=== PATIENT | female | born 1955 | race Hispanic/Latino ===

== ENCOUNTER 2018-09-23 01:55 | Inpatient (IN) | payer MEDICARE ==
[2018-09-23] MEDS ORDERED: DUONEB *Not for PRN Use IH ONE (03:01)
[2018-09-23] MEDS ORDERED: SOLU-Medrol IV ONE (03:27)
[2018-09-23] MEDS ORDERED: LEVAQUIN 750MG/150ML 750 MG/150 ML BAG IV ONE (03:27)
[2018-09-23] MEDS ORDERED: ATROVENT IH ONE (03:27)
[2018-09-23] MEDS ORDERED: PROVENTIL IH ONE (03:27)
--- NOTE | 2018-09-23 03:27 | Emergency Department Report ---
ED Shortness of Breath HPI - General Chief Complaint: Dyspnea/Respdistress Stated Complaint: DIFFICULTY IN BREATHING, CHEST PAIN Time Seen by Provider: 09/23/18 03:27 Source: patient, EMS Mode of arrival: Stretcher Limitations: No Limitations - History of Present Illness MD Complaint: shortness of breath, cough, chest pain -: Gradual, days(s) (3) Severity: severe Pain Scale: 7 Quality: aching Consistency: constant Improves With: nothing Worsens With: nothing Known History Of: COPD Associated Symptoms: chest pain Treatments Prior to Arrival: oxygen - Related Data Home Oxygen Therapy: No Home Oxygen Amount: 3 Liters Allergies Allergy/AdvReac Type Severity Reaction Status Date / Time Penicillins AdvReac Severe Anaphylaxis Verified 09/23/18 02:53 ED Review of Systems ROS: Stated complaint: DIFFICULTY IN BREATHING, CHEST PAIN Other details as noted in HPI Comment: All other systems reviewed and negative Constitutional: denies: chills, fever Eyes: denies: eye pain, eye discharge, vision change ENT: denies: ear pain, throat pain Respiratory: cough, orthopnea, shortness of breath. denies: wheezing Cardiovascular: chest pain. denies: palpitations Endocrine: no symptoms reported Gastrointestinal: denies: abdominal pain, nausea, diarrhea Genitourinary: denies: urgency, dysuria, discharge Musculoskeletal: denies: back pain, joint swelling, arthralgia Skin: denies: rash, lesions Neurological: denies: headache, weakness, paresthesias Psychiatric: denies: anxiety, depression Hematological/Lymphatic: denies: easy bleeding, easy bruising ED Physical Exam - General Limitations: No Limitations General appearance: alert, in no apparent distress - Head Head exam: Present: atraumatic, normocephalic - Eye Eye exam: Present: normal appearance, PERRL, EOMI - ENT ENT exam: Present: normal exam, normal orophraynx, mucous membranes moist - Neck Neck exam: Present: normal inspection, full ROM - Respiratory Respiratory exam: Present: wheezes, rales, rhonchi. Absent: respiratory distress - Cardiovascular Cardiovascular Exam: Present: regular rate, normal rhythm. Absent: systolic murmur, diastolic murmur, rubs, gallop - GI/Abdominal GI/Abdominal exam: Present: soft, normal bowel sounds - Extremities Exam Extremities exam: Present: normal inspection, normal capillary refill - Back Exam Back exam: Present: normal inspection, full ROM - Neurological Exam Neurological exam: Present: alert, oriented X3, CN II-XII intact - Psychiatric Psychiatric exam: Present: normal affect, normal mood - Skin Skin exam: Present: warm, dry, intact, normal color. Absent: rash ED Course Vital Signs 09/23/18 09/23/18 09/23/18 02:41 02:45 02:46 Temperature 99.4 F Pulse Rate 99 H Pulse Rate [ Anterior Left Throughout] Pulse Rate [ Anterior Right Throughout] Respiratory 16 Rate Respiratory Rate [Anterior Left Throughout ] Respiratory Rate [Anterior Right Throughout] Blood Pressure 108/65 108/65 Blood Pressure 108/65 [Left] O2 Sat by Pulse 100 95 100 Oximetry 09/23/18 09/23/18 09/23/18 03:00 03:12 03:16 Temperature Pulse Rate 88 90 Pulse Rate [ 99 H Anterior Left Throughout] Pulse Rate [ 99 H Anterior Right Throughout] Respiratory 19 15 Rate Respiratory 16 Rate [Anterior Left Throughout ] Respiratory 16 Rate [Anterior Right Throughout] Blood Pressure 105/56 108/65 Blood Pressure [Left] O2 Sat by Pulse 91 93 Oximetry 09/23/18 09/23/18 09/23/18 03:30 03:46 04:00 Temperature Pulse Rate 101 H 105 H 100 H Pulse Rate [ Anterior Left Throughout] Pulse Rate [ Anterior Right Throughout] Respiratory 18 23 28 H Rate Respiratory Rate [Anterior Left Throughout ] Respiratory Rate [Anterior Right Throughout] Blood Pressure 108/65 105/56 107/60 Blood Pressure [Left] O2 Sat by Pulse 92 86 Oximetry 09/23/18 09/23/18 09/23/18 04:02 04:16 04:20 Temperature Pulse Rate 100 H 99 H Pulse Rate [ 107 H 98 H Anterior Left Throughout] Pulse Rate [ 107 H 98 H Anterior Right Throughout] Respiratory 25 H 15 Rate Respiratory 19 18 Rate [Anterior Left Throughout ] Respiratory 19 18 Rate [Anterior Right Throughout] Blood Pressure 105/56 112/61 Blood Pressure [Left] O2 Sat by Pulse 97 87 Oximetry 09/23/18 09/23/18 09/23/18 04:30 05:00 05:11 Temperature Pulse Rate 99 H 107 H 104 H Pulse Rate [ Anterior Left Throughout] Pulse Rate [ Anterior Right Throughout] Respiratory 19 14 13 Rate Respiratory Rate [Anterior Left Throughout ] Respiratory Rate [Anterior Right Throughout] Blood Pressure 112/61 101/64 Blood Pressure 101/64 [Left] O2 Sat by Pulse 98 97 96 Oximetry 09/23/18 06:30 Temperature Pulse Rate 97 H Pulse Rate [ Anterior Left Throughout] Pulse Rate [ Anterior Right Throughout] Respiratory 18 Rate Respiratory Rate [Anterior Left Throughout ] Respiratory Rate [Anterior Right Throughout] Blood Pressure 107/57 Blood Pressure [Left] O2 Sat by Pulse 93 Oximetry - Consultations Consultation #1: 09/23/18 06:37 Dr Sauceda to admit. ED Medical Decision Making - Lab Data Result diagrams: 09/23/18 03:25 09/23/18 03:35 Lab Results 09/23/18 09/23/18 09/23/18 Range/Units 03:25 03:25 03:35 WBC 7.4 (4.5-11.0) K/mm3 RBC 4.01 (3.65-5.03) M/mm3 Hgb 12.5 (10.1-14.3) gm/dl Hct 38.6 (30.3-42.9) % MCV 96 (79-97) fl MCH 31 (28-32) pg MCHC 33 (30-34) % RDW 14.1 (13.2-15.2) % Plt Count 188 (140-440) K/mm3 Lymph % (Auto) 3.7 L (13.4-35.0) % [place] % (Auto) 6.6 (0.0-7.3) % Eos % (Auto) 0.1 (0.0-4.3) % Baso % (Auto) 0.5 (0.0-1.8) % Lymph # 0.3 L (1.2-5.4) K/mm3 [place] # 0.5 (0.0-0.8) K/mm3 Eos # 0.0 (0.0-0.4) K/mm3 Baso # 0.0 (0.0-0.1) K/mm3 Seg Neutrophils % 89.1 H (40.0-70.0) % Seg Neutrophils # 6.6 (1.8-7.7) K/mm3 APTT 23.9 L (24.2-36.6) Sec. POC ABG pH (7.35-7.45) POC ABG pCO2 (35-45) POC ABG pO2 (80-105) POC ABG HCO3 POC ABG Total CO2 POC ABG O2 Sat POC ABG Base Excess FiO2 % Sodium (137-145) mmol/L Potassium (3.6-5.0) mmol/L Chloride (98-107) mmol/L Carbon Dioxide (22-30) mmol/L Anion Gap mmol/L BUN (7-17) mg/dL Creatinine (0.7-1.2) mg/dL Estimated GFR ml/min BUN/Creatinine Ratio % Glucose (65-100) mg/dL Calcium (8.4-10.2) mg/dL Magnesium (1.7-2.3) mg/dL Total Bilirubin (0.1-1.2) mg/dL AST (5-40) units/L ALT (7-56) units/L Alkaline Phosphatase (35-129) units/L Total Creatine Kinase (30-135) units/L CK-MB (CK-2) (0.0-4.0) ng/mL CK-MB (CK-2) Rel Index (0-4) Troponin T < 0.010 (0.00-0.029) ng/mL Total Protein (6.3-8.2) g/dL Albumin (3.9-5) g/dL Albumin/Globulin Ratio % 09/23/18 09/23/18 09/23/18 Range/Units 03:35 03:35 03:46 WBC (4.5-11.0) K/mm3 RBC (3.65-5.03) M/mm3 Hgb (10.1-14.3) gm/dl Hct (30.3-42.9) % MCV (79-97) fl MCH (28-32) pg MCHC (30-34) % RDW (13.2-15.2) % Plt Count (140-440) K/mm3 Lymph % (Auto) (13.4-35.0) % [place] % (Auto) (0.0-7.3) % Eos % (Auto) (0.0-4.3) % Baso % (Auto) (0.0-1.8) % Lymph # (1.2-5.4) K/mm3 [place] # (0.0-0.8) K/mm3 Eos # (0.0-0.4) K/mm3 Baso # (0.0-0.1) K/mm3 Seg Neutrophils % (40.0-70.0) % Seg Neutrophils # (1.8-7.7) K/mm3 APTT (24.2-36.6) Sec. POC ABG pH 7.362 (7.35-7.45) POC ABG pCO2 68.5 H (35-45) POC ABG pO2 70 L (80-105) POC ABG HCO3 38.8 POC ABG Total CO2 41 POC ABG O2 Sat 92 POC ABG Base Excess 13 FiO2 3 % Sodium 137 (137-145) mmol/L Potassium 4.8 (3.6-5.0) mmol/L Chloride 91.4 L (98-107) mmol/L Carbon Dioxide 37 H (22-30) mmol/L Anion Gap 13 mmol/L BUN 13 (7-17) mg/dL Creatinine 0.4 L (0.7-1.2) mg/dL Estimated GFR > 60 ml/min BUN/Creatinine Ratio 33 % Glucose 150 H (65-100) mg/dL Calcium 9.1 (8.4-10.2) mg/dL Magnesium 1.90 (1.7-2.3) mg/dL Total Bilirubin 0.30 (0.1-1.2) mg/dL AST 10 (5-40) units/L ALT 5 L (7-56) units/L Alkaline Phosphatase 69 (35-129) units/L Total Creatine Kinase 28 L (30-135) units/L CK-MB (CK-2) 1.0 (0.0-4.0) ng/mL CK-MB (CK-2) Rel Index 3.5 (0-4) Troponin T (0.00-0.029) ng/mL Total Protein 5.8 L (6.3-8.2) g/dL Albumin 3.8 L (3.9-5) g/dL Albumin/Globulin Ratio 1.9 % - EKG Data -: EKG Interpreted by Mt EKG shows normal: sinus rhythm Rate: normal (97) - EKG Data When compared to previous EKG there are: previous EKG unavailable 09/23/18 06:39 LAD, No STEMI. - Radiology Data Radiology results: report reviewed, image reviewed CXR showed RLL infiltrate. Critical Care Time: Yes Critical care time in (mins) excluding proc time.: 40 Critical care attestation.: If time is entered above; I have spent that time in minutes in the direct care of this critically ill patient, excluding procedure time. ED Disposition Clinical Impression: COPD with exacerbation, Hypoxia, Respiratory distress, acute RLL pneumonia Qualifiers: Pneumonia type: due to unspecified organism Qualified Code(s): J18.1 - Lobar pneumonia, unspecified organism Disposition: OP ADMIT IP TO THIS HOSP Is pt being admited?: Yes Does the pt Need Aspirin: No Condition: Stable Instructions: Chronic Obstructive Pulmonary Disease (ED), Bacterial Pneumonia (ED) Time of Disposition: 06:40
[2018-09-23 03:40] LABS: Basophils % (Auto) 0.5 % (0.0-1.8); Eosinophils % (Auto) 0.1 % (0.0-4.3); Hematocrit 38.6 % (30.3-42.9); Hemoglobin 12.5 gm/dl (10.1-14.3); Lymphocytes # (Auto) 0.3 K/mm3 (1.2-5.4); Lymphocytes % (Auto) 3.7 % (13.4-35.0); Mean Corpuscular HGB Conc 33 % (30-34); Mean Corpuscular Hemoglobin 31 pg (28-32); Mean Corpuscular Volume 96 fl (79-97); Monocytes # (Auto) 0.5 K/mm3 (0.0-0.8); Monocytes % (Auto) 6.6 % (0.0-7.3); Platelet Count 188 K/mm3 (140-440); Red Blood Count 4.01 M/mm3 (3.65-5.03); Red Cell Distribution Width 14.1 % (13.2-15.2)
[2018-09-23 03:59] LABS: Alanine Aminotransferase 5 units/L (7-56); Albumin 3.8 g/dL (3.9-5); BUN/Creatinine Ratio 33; Blood Urea Nitrogen 13 mg/dL (7-17); Calcium 9.1 mg/dL (8.4-10.2); Hemolysis Index 42
[2018-09-23] MEDS ORDERED: MORPHINE IV ONE ×2 (04:06→08:30)
[2018-09-23] MEDS ORDERED: ZOFRAN IV ONE (04:07)
[2018-09-23] MEDS ORDERED: TESSALON PERLES PO ONE (04:08)
--- NOTE | 2018-09-23 04:10 | XRay Report ---
FINAL REPORT PROCEDURE: XR CHEST 1V AP TECHNIQUE: Chest radiograph anteroposterior view. CPT 76560 HISTORY: Shortness of breath COMPARISON: No prior studies are available for comparison. FINDINGS: Heart: Normal. Mediastinum/Vessels: Normal. Lungs/Pleural space: Mild infiltrate right lower lung. Slight vascular congestion. No effusion or pne umothorax. Bony thorax: No acute osseous abnormality. Life support devices: None. IMPRESSION: Mild infiltrate right lower lung. There is slight vascular congestion..
--- NOTE | 2018-09-23 09:00 | History and Physical Report ---
History of Present Illness Date of examination: 09/23/18 Date of admission: 09/23/2018 Chief complaint: Increasing shortness of breath for 2 days History of present illness: History of Present Illness: 63-year-old female with past medical history of insulin-dependent diabetes, COPD, peripheral neuropathy and chronic pain comes in for increasing shortness of breath of 3 days'. Cough or clear mucoid to yellow sputum. No fever or chills. No exacerbating or relieving factors. No chest pain. Past medical history Insulin-dependent diabetes COPD Peripheral neuropathy Chronic pain Past surgical history Unavailable Family history HTN Social history Doesn't smoke and no alcohol Review of Systems ROS: Stated complaint: DIFFICULTY IN BREATHING, CHEST PAIN Other details as noted in HPI Comment: All other systems reviewed and negative Constitutional: denies: chills, fever Eyes: denies: eye pain, eye discharge, vision change ENT: denies: ear pain, throat pain Respiratory: cough, orthopnea, shortness of breath. denies: wheezing Cardiovascular: chest pain. denies: palpitations Endocrine: no symptoms reported Gastrointestinal: denies: abdominal pain, nausea, diarrhea Genitourinary: denies: urgency, dysuria, discharge Musculoskeletal: denies: back pain, joint swelling, arthralgia Skin: denies: rash, lesions Neurological: denies: headache, weakness, paresthesias Psychiatric: denies: anxiety, depression Hematological/Lymphatic: denies: easy bleeding, easy bruising Medications and Allergies Allergies Allergy/AdvReac Type Severity Reaction Status Date / Time Penicillins AdvReac Severe Anaphylaxis Verified 09/23/18 02:53 Home Medications Medication Instructions Recorded Confirmed Last Taken Type Aspirin [Aspirin EC] 81 mg PO QDAY 09/23/18 09/23/18 Unknown History Baclofen [Lioresal] 10 mg PO BID 09/23/18 09/23/18 Unknown History Budesonide/Formoterol Fumarate 2 puff INHALATION BID 09/23/18 09/23/18 Unknown History [Symbicort 160-4.5 Mcg Inhaler] Buprenorphine 1 each TD 09/23/18 Unknown History Detemir (Nf) [Levemir (Nf)] 10 unit SQ QHS 09/23/18 09/23/18 Unknown History Digoxin 125 mcg PO 3XW 09/23/18 09/23/18 Unknown History Digoxin 125 mcg PO QDAY 09/23/18 09/23/18 Unknown History Fluticasone Propionate [Flovent 2 puff INHALATION BID 09/23/18 09/23/18 Unknown History Hfa] Gabapentin [Neurontin] 600 mg PO TID 09/23/18 09/23/18 Unknown History Theophylline Anhydrous ER [Theodur] 300 mg PO 09/23/18 Unknown History tiZANidine [Zanaflex] 4 mg PO Q8H PRN 09/23/18 09/23/18 Unknown History traMADol [Ultram] 50 mg PO Q6HR PRN 09/23/18 09/23/18 Unknown History Exam - Constitutional Vitals: Temp Pulse Resp BP Pulse Ox 99.4 F 97 H 22 107/57 94 09/23/18 02:45 09/23/18 06:30 09/23/18 07:40 09/23/18 06:30 09/23/18 07:40 General appearance: Present: no acute distress, well-nourished - EENT Eyes: Present: PERRL ENT: hearing intact, clear oral mucosa - Neck Neck: Present: supple, normal ROM - Respiratory Respiratory effort: normal Respiratory: bilateral: CTA, rhonchi - Cardiovascular Heart rate: 78 Rhythm: regular Heart Sounds: Present: S1 & S2. Absent: rub, click - Extremities Extremities: no ischemia, pulses intact, pulses symmetrical, No edema Peripheral Pulses: within normal limits - Abdominal General gastrointestinal: Present: soft, non-tender, non-distended, normal bowel sounds Female genitourinary: Present: normal - Rectal Rectal Exam: deferred - Integumentary Integumentary: Present: clear, warm, dry - Musculoskeletal Musculoskeletal: gait normal, strength equal bilaterally - Psychiatric Psychiatric: appropriate mood/affect, intact judgment & insight - Neurologic Neurologic: CNII-XII intact, moves all extremities - Allied Health Allied health notes reviewed: nursing, case management Results - Labs CBC & Chem 7: 09/24/18 04:28 09/24/18 04:28 Labs: Laboratory Last Values WBC 7.4 K/mm3 (4.5-11.0) 09/23/18 03:25 RBC 4.01 M/mm3 (3.65-5.03) 09/23/18 03:25 Hgb 12.5 gm/dl (10.1-14.3) 09/23/18 03:25 Hct 38.6 % (30.3-42.9) 09/23/18 03:25 MCV 96 fl (79-97) 09/23/18 03:25 MCH 31 pg (28-32) 09/23/18 03:25 MCHC 33 % (30-34) 09/23/18 03:25 RDW 14.1 % (13.2-15.2) 09/23/18 03:25 Plt Count 188 K/mm3 (140-440) 09/23/18 03:25 Lymph % (Auto) 3.7 % (13.4-35.0) L 09/23/18 03:25 [place] % (Auto) 6.6 % (0.0-7.3) 09/23/18 03:25 Eos % (Auto) 0.1 % (0.0-4.3) 09/23/18 03:25 Baso % (Auto) 0.5 % (0.0-1.8) 09/23/18 03:25 Lymph # 0.3 K/mm3 (1.2-5.4) L 09/23/18 03:25 [place] # 0.5 K/mm3 (0.0-0.8) 09/23/18 03:25 Eos # 0.0 K/mm3 (0.0-0.4) 09/23/18 03:25 Baso # 0.0 K/mm3 (0.0-0.1) 09/23/18 03:25 Seg Neutrophils % 89.1 % (40.0-70.0) H 09/23/18 03:25 Seg Neutrophils # 6.6 K/mm3 (1.8-7.7) 09/23/18 03:25 APTT 23.9 Sec. (24.2-36.6) L 09/23/18 03:35 POC ABG pH 7.362 (7.35-7.45) 09/23/18 03:46 POC ABG pCO2 68.5 (35-45) H 09/23/18 03:46 POC ABG pO2 70 (80-105) L 09/23/18 03:46 POC ABG HCO3 38.8 09/23/18 03:46 POC ABG Total CO2 41 09/23/18 03:46 POC ABG O2 Sat 92 09/23/18 03:46 POC ABG Base Excess 13 09/23/18 03:46 FiO2 3 % 09/23/18 03:46 Sodium 137 mmol/L (137-145) 09/23/18 03:35 Potassium 4.8 mmol/L (3.6-5.0) 09/23/18 03:35 Chloride 91.4 mmol/L (98-107) L 09/23/18 03:35 Carbon Dioxide 37 mmol/L (22-30) H 09/23/18 03:35 Anion Gap 13 mmol/L 09/23/18 03:35 BUN 13 mg/dL (7-17) 09/23/18 03:35 Creatinine 0.4 mg/dL (0.7-1.2) L 09/23/18 03:35 Estimated GFR > 60 ml/min 09/23/18 03:35 BUN/Creatinine Ratio 33 % 09/23/18 03:35 Glucose 150 mg/dL (65-100) H 09/23/18 03:35 Calcium 9.1 mg/dL (8.4-10.2) 09/23/18 03:35 Magnesium 1.90 mg/dL (1.7-2.3) 09/23/18 03:35 Total Bilirubin 0.30 mg/dL (0.1-1.2) 09/23/18 03:35 AST 10 units/L (5-40) 09/23/18 03:35 ALT 5 units/L (7-56) L 09/23/18 03:35 Alkaline Phosphatase 69 units/L (35-129) 09/23/18 03:35 Total Creatine Kinase 28 units/L (30-135) L 09/23/18 03:35 CK-MB (CK-2) 1.0 ng/mL (0.0-4.0) 09/23/18 03:35 CK-MB (CK-2) Rel Index 3.5 (0-4) 09/23/18 03:35 Troponin T < 0.010 ng/mL (0.00-0.029) 09/23/18 03:25 Total Protein 5.8 g/dL (6.3-8.2) L 09/23/18 03:35 Albumin 3.8 g/dL (3.9-5) L 09/23/18 03:35 Albumin/Globulin Ratio 1.9 % 09/23/18 03:35 Short CBC 09/24/18 Range/Units 04:28 WBC 5.9 (4.5-11.0) K/mm3 Hgb 12.7 (10.1-14.3) gm/dl Hct 39.9 (30.3-42.9) % Plt Count 175 (140-440) K/mm3 BMP 09/24/18 04:28 Sodium 143 Potassium 4.4 Chloride 94.6 L Carbon Dioxide 37 H BUN 31 H Creatinine 0.6 L Glucose 115 H Calcium 9.1 Liver Function 09/24/18 Range/Units 04:28 Total Bilirubin < 0.20 (0.1-1.2) mg/dL AST 12 (5-40) units/L ALT 7 (7-56) units/L Alkaline Phosphatase 73 (35-129) units/L Albumin 3.8 L (3.9-5) g/dL - Imaging and Cardiology EKG: report reviewed (normal sinus rhythm heart rate of 97/m no acute ST-T wave changes) Imaging and Cardiology: Chest x-ray IMPRESSION: Mild infiltrate right lower lung. There is slight vascular congestion.. Assessment and Plan Advance Directives: Yes (full code) VTE prophylaxis?: Chemical Plan of care discussed with patient/family: Yes - Patient Problems (1) Acute respiratory failure with hypoxia Current Visit: Yes Status: Acute Plan to address problem: Secondary to COPD and pneumonia Treat Both (2) COPD with exacerbation Current Visit: Yes Status: Acute Plan to address problem: Duonebs Solu-Medrol and IV antibiotics (3) RLL pneumonia Current Visit: Yes Status: Acute Qualifiers: Pneumonia type: due to unspecified organism Qualified Code(s): J18.1 - Lobar pneumonia, unspecified organism Plan to address problem: IV ceftriaxone and Zithromax (4) Insulin dependent diabetes mellitus Current Visit: Yes Status: Chronic Plan to address problem: Continue home insulin and coverage (5) Peripheral neuropathy Current Visit: Yes Status: Chronic Plan to address problem: Continue gabapentin (6) Malnutrition Current Visit: Yes Status: Chronic Qualifiers: Protein-calorie malnutrition severity: moderate Plan to address problem: Dietitian consult (7) DVT prophylaxis Current Visit: Yes Status: Acute Plan to address problem: On Lovenox and GI prophylaxis
[2018-09-23] MEDS ORDERED: TYLENOL PO PRN (09:01)
[2018-09-23] MEDS ORDERED: SODIUM CHLORIDE FLUSH SYRINGE 10 ML IV PRN (09:01)
[2018-09-23] MEDS ORDERED: DILAUDID IV PRN (09:01)
[2018-09-23] MEDS ORDERED: MOTRIN PO PRN (09:01)
[2018-09-23] MEDS ORDERED: PROVENTIL IH PRN (09:04)
[2018-09-23] MEDS ORDERED: MORPHINE ONE (09:07)
[2018-09-23] MEDS ORDERED: LOVENOX SUB-Q SCH (10:00)
[2018-09-23] MEDS ORDERED: DILAUDID ONE (10:36)
[2018-09-23] MEDS ORDERED: SOLU-Medrol ONE (10:37)
[2018-09-23] MEDS ORDERED: LOVENOX SUB-Q ONE (10:38)
[2018-09-23] MEDS: LOVENOX SUB-Q SCH (10:50)
[2018-09-23] MEDS: SOLU-Medrol IV SCH ×3 (10:50→23:00)
[2018-09-23] MEDS: SODIUM CHLORIDE FLUSH SYRINGE 10 ML IV SCH ×2 (10:50→23:03)
[2018-09-23] MEDS: ZOFRAN IV PRN ×2 (11:16→11:20)
[2018-09-23] MEDS ORDERED: ZOFRAN ONE (11:19)
[2018-09-23] MEDS: DUONEB *Not for PRN Use IH SCH ×3 (12:00→20:40)
[2018-09-23] MEDS ORDERED: D50W (25GM) Syringe IV PRN (12:38)
[2018-09-23] MEDS: HumaLOG SUB-Q SCH ×3 (13:15→23:01)
[2018-09-23] MEDS: TESSALON PERLES PO SCH ×2 (14:55→23:00)
[2018-09-24] MEDS: TESSALON PERLES PO SCH ×3 (05:28→21:04)
[2018-09-24] MEDS: SOLU-Medrol IV SCH ×3 (05:28→21:06)
[2018-09-24 05:44] LABS: Basophils % (Auto) 0.1 % (0.0-1.8); Hematocrit 39.9 % (30.3-42.9); Hemoglobin 12.7 gm/dl (10.1-14.3); Lymphocytes # (Auto) 0.2 K/mm3 (1.2-5.4); Lymphocytes % (Auto) 3.2 % (13.4-35.0); Mean Corpuscular HGB Conc 32 % (30-34); Mean Corpuscular Hemoglobin 31 pg (28-32); Mean Corpuscular Volume 98 fl (79-97); Monocytes # (Auto) 0.6 K/mm3 (0.0-0.8); Monocytes % (Auto) 9.8 % (0.0-7.3); Platelet Count 175 K/mm3 (140-440); Red Blood Count 4.06 M/mm3 (3.65-5.03); Red Cell Distribution Width 14.2 % (13.2-15.2)
[2018-09-24 06:18] LABS: Alanine Aminotransferase 7 units/L (7-56); Albumin 3.8 g/dL (3.9-5); BUN/Creatinine Ratio 52; Blood Urea Nitrogen 31 mg/dL (7-17); Calcium 9.1 mg/dL (8.4-10.2); Hemolysis Index 3
[2018-09-24] MEDS: HumaLOG SUB-Q SCH ×4 (08:30→22:56)
[2018-09-24] MEDS: DUONEB *Not for PRN Use IH SCH ×4 (08:33→19:53)
[2018-09-24] MEDS: LEVAQUIN 750MG/150ML 750 MG/150 ML BAG IV SCH (09:38)
[2018-09-24] MEDS: SODIUM CHLORIDE FLUSH SYRINGE 10 ML IV SCH ×2 (09:39→21:06)
[2018-09-24] MEDS: LOVENOX SUB-Q SCH (09:39)
[2018-09-24] MEDS ORDERED: ULTRAM PO PRN (15:58)
[2018-09-24] MEDS ORDERED: ZANAFLEX PO PRN (15:58)
[2018-09-24] MEDS ORDERED: NON-FORMULARY (Budesonide/Formoterol Fumarate [Symbicort 160-4.5 Mcg Inhaler] 2 PUFF) INHALATION SCH (16:00)
[2018-09-24] MEDS ORDERED: BUPRENORPHINE TD SCH (16:00)
[2018-09-24] MEDS ORDERED: FLUTICASONE PROPIONATE INHALATION SCH (16:15)
--- NOTE | 2018-09-24 16:21 | Progress Note ---
Assessment and Plan - Patient Problems (1) Acute respiratory failure with hypoxia Current Visit: Yes Status: Acute Plan to address problem: Secondary to COPD and pneumonia Treat Both (2) COPD with exacerbation Current Visit: Yes Status: Acute Plan to address problem: Duonebs Solu-Medrol and IV antibiotics (3) RLL pneumonia Current Visit: Yes Status: Acute Qualifiers: Pneumonia type: due to unspecified organism Qualified Code(s): J18.1 - Lobar pneumonia, unspecified organism Plan to address problem: IV ceftriaxone and Zithromax (4) Insulin dependent diabetes mellitus Current Visit: Yes Status: Chronic Plan to address problem: Continue home insulin and coverage (5) Peripheral neuropathy Current Visit: Yes Status: Chronic Plan to address problem: Continue gabapentin (6) Malnutrition Current Visit: Yes Status: Chronic Qualifiers: Protein-calorie malnutrition severity: moderate Plan to address problem: Dietitian consult (7) DVT prophylaxis Current Visit: Yes Status: Acute Plan to address problem: On Lovenox and GI prophylaxis Subjective Date of service: 09/24/18 Principal diagnosis: respiratory failure and right lower lobe pneumonia Interval history: Symptomatically slightly better, still lethargic Objective - Constitutional Vitals: Vital Signs - 12hr 09/24/18 09/24/18 09/24/18 07:26 08:00 08:10 Temperature 99.4 F Pulse Rate 99 H Pulse Rate [ 101 H 102 H Anterior Right Throughout] Pulse Rate [ Right Brachial] Respiratory 20 Rate Respiratory 18 18 Rate [Anterior Right Throughout] Blood Pressure 113/66 O2 Sat by Pulse 96 Oximetry 09/24/18 09/24/18 09/24/18 08:33 09:17 10:00 Temperature Pulse Rate 99 H Pulse Rate [ Anterior Right Throughout] Pulse Rate [ 101 H Right Brachial] Respiratory 17 Rate Respiratory Rate [Anterior Right Throughout] Blood Pressure O2 Sat by Pulse 96 92 Oximetry 09/24/18 12:00 Temperature Pulse Rate Pulse Rate [ 109 H Anterior Right Throughout] Pulse Rate [ Right Brachial] Respiratory Rate Respiratory 16 Rate [Anterior Right Throughout] Blood Pressure O2 Sat by Pulse Oximetry General appearance: Present: no acute distress, well-nourished - EENT Eyes: PERRL, EOM intact ENT: hearing intact, clear oral mucosa Ears: bilateral: normal - Neck Neck: supple, normal ROM - Respiratory Respiratory effort: normal Respiratory: bilateral: CTA, rhonchi, wheezing - Breasts Breasts: normal - Cardiovascular Heart rate: 86 Rhythm: regular Heart Sounds: Present: S1 & S2. Absent: gallop, rub Extremities: no ischemia, pulses intact, No edema, normal color, Full ROM - Gastrointestinal General gastrointestinal: Present: soft, non-tender, non-distended, normal bowel sounds - Genitourinary Female genitourinary: normal - Integumentary Integumentary: clear, warm, dry - Musculoskeletal Musculoskeletal: 1, strength equal bilaterally - Neurologic Neurologic: moves all extremities - Psychiatric Psychiatric: memory intact, appropriate mood/affect, intact judgment & insight - Allied health notes Allied health notes reviewed: nursing, case management - Labs CBC & Chem 7: 09/24/18 04:28 09/24/18 04:28 Labs: Abnormal lab results 09/23/18 09/23/18 09/24/18 Range/Units 16:32 21:37 02:46 MCV (79-97) fl Lymph % (Auto) (13.4-35.0) % [place] % (Auto) (0.0-7.3) % Lymph # (1.2-5.4) K/mm3 Seg Neutrophils % (40.0-70.0) % Chloride (98-107) mmol/L Carbon Dioxide (22-30) mmol/L BUN (7-17) mg/dL Creatinine (0.7-1.2) mg/dL Glucose (65-100) mg/dL POC Glucose 140 H 181 H 128 H (70-105) Total Protein (6.3-8.2) g/dL Albumin (3.9-5) g/dL 09/24/18 09/24/18 09/24/18 Range/Units 04:28 04:28 07:27 MCV 98 H (79-97) fl Lymph % (Auto) 3.2 L (13.4-35.0) % [place] % (Auto) 9.8 H (0.0-7.3) % Lymph # 0.2 L (1.2-5.4) K/mm3 Seg Neutrophils % 86.9 H (40.0-70.0) % Chloride 94.6 L (98-107) mmol/L Carbon Dioxide 37 H (22-30) mmol/L BUN 31 H (7-17) mg/dL Creatinine 0.6 L (0.7-1.2) mg/dL Glucose 115 H (65-100) mg/dL POC Glucose 117 H (70-105) Total Protein 6.2 L (6.3-8.2) g/dL Albumin 3.8 L (3.9-5) g/dL 09/24/18 Range/Units 12:01 MCV (79-97) fl Lymph % (Auto) (13.4-35.0) % [place] % (Auto) (0.0-7.3) % Lymph # (1.2-5.4) K/mm3 Seg Neutrophils % (40.0-70.0) % Chloride (98-107) mmol/L Carbon Dioxide (22-30) mmol/L BUN (7-17) mg/dL Creatinine (0.7-1.2) mg/dL Glucose (65-100) mg/dL POC Glucose 129 H (70-105) Total Protein (6.3-8.2) g/dL Albumin (3.9-5) g/dL
[2018-09-24] MEDS: HALFPRIN EC PO SCH (17:00)
[2018-09-24] MEDS: LANOXIN PO SCH (17:09)
[2018-09-24 18:58] LABS: Bilirubin,Urine NEG (Negative); Blood,Urine NEG (Negative); Color,Urine Yellow (Yellow); Mucus,Urine 1+ /HPF; Protein,Urine <15 mg/dL mg/dL (Negative); Urobilinogen,Urine < 2.0 mg/dL (<2.0)
[2018-09-24] MEDS: PULMICORT IH SCH (19:53)
[2018-09-24] MEDS ORDERED: NON-FORMULARY (Gabapentin [Neurontin] 600 MG) PO SCH (20:00)
[2018-09-24] MEDS: NEURONTIN PO SCH (21:04)
[2018-09-24] MEDS: LIORESAL PO SCH (21:05)
[2018-09-24] MEDS: THEODUR PO SCH (21:05)
[2018-09-24] MEDS ORDERED: DETEMIR SQ SCH (22:00)
[2018-09-24] MEDS ORDERED: LANTUS SUB-Q SCH (22:00)
[2018-09-25] MEDS: BROVANA NEBU IH SCH ×2 (02:50→09:35)
[2018-09-25] MEDS: SOLU-Medrol IV SCH ×2 (05:35→13:33)
[2018-09-25] MEDS: TESSALON PERLES PO SCH ×2 (05:35→13:32)
[2018-09-25] MEDS: HumaLOG SUB-Q SCH ×3 (08:22→17:25)
[2018-09-25] MEDS: NEURONTIN PO SCH ×2 (08:55→13:32)
[2018-09-25] MEDS: THEODUR PO SCH (09:07)
[2018-09-25] MEDS: LOVENOX SUB-Q SCH (09:07)
[2018-09-25] MEDS: HALFPRIN EC PO SCH (09:07)
[2018-09-25] MEDS: LIORESAL PO SCH (09:08)
[2018-09-25] MEDS: SODIUM CHLORIDE FLUSH SYRINGE 10 ML IV SCH (09:09)
[2018-09-25] MEDS: LEVAQUIN 750MG/150ML 750 MG/150 ML BAG IV SCH (09:09)
[2018-09-25] MEDS: DUONEB *Not for PRN Use IH SCH ×3 (09:34→19:42)
[2018-09-25] MEDS: PULMICORT IH SCH (09:34)
--- NOTE | 2018-09-25 13:18 | Discharge Summary ---
Providers - Providers Date of Admission: 09/23/18 09:01 Date of discharge: 09/25/18 Attending physician: CARMELINA DE LEON 09/24/18 16:21 Consult to Dietitian/Nutrition [CONS] Routine Physician Instructions: Reason For Exam: malnutrition Reason for Consult: Nutrition Recommendations Reason for Consult: Diet education Primary care physician: COURT REPORTER Hospitalization Condition: Stable Hospital course: Assessment and Plan - Patient Problems (1) Acute respiratory failure with hypoxia Current Visit: Yes Status: Acute Plan to address problem: Secondary to COPD and pneumonia Treat Both Improved D/c Home Patient has Home o2 (2) COPD with exacerbation Current Visit: Yes Status: Acute Plan to address problem: Improved (3) RLL pneumonia Current Visit: Yes Status: Acute Qualifiers: Pneumonia type: due to unspecified organism Qualified Code(s): J18.1 - Lobar pneumonia, unspecified organism Plan to address problem: D/c on Po ABX (4) Insulin dependent diabetes mellitus Current Visit: Yes Status: Chronic Plan to address problem: Continue home insulin and coverage (5) Peripheral neuropathy Current Visit: Yes Status: Chronic Plan to address problem: Continue gabapentin (6) Malnutrition Current Visit: Yes Status: Chronic Qualifiers: Protein-calorie malnutrition severity: moderate Plan to address problem: Ensure 1 can qd Disposition: DC-30 STILL A PATIENT - Discharge Diagnoses (1) Acute respiratory failure with hypoxia Status: Acute (2) COPD with exacerbation Status: Acute (3) RLL pneumonia Status: Acute Qualifiers: Pneumonia type: due to unspecified organism Qualified Code(s): J18.1 - Lobar pneumonia, unspecified organism (4) Insulin dependent diabetes mellitus Status: Chronic (5) Peripheral neuropathy Status: Chronic (6) Malnutrition Status: Chronic Qualifiers: Protein-calorie malnutrition severity: moderate (7) DVT prophylaxis Status: Acute Core Measure Documentation - Palliative Care Palliative Care/ Comfort Measures: Not Applicable - Core Measures Any of the following diagnoses?: none Exam - Constitutional Vitals: Temp Pulse Resp BP Pulse Ox 98.7 F 115 H 22 107/60 94 09/25/18 07:09 09/25/18 08:29 09/25/18 08:29 09/25/18 07:09 09/25/18 08:29 General appearance: Present: no acute distress, well-nourished - EENT Eyes: Present: PERRL ENT: hearing intact, clear oral mucosa - Neck Neck: Present: supple, normal ROM - Respiratory Respiratory effort: normal Respiratory: bilateral: CTA - Cardiovascular Heart rate: 76 Rhythm: regular Heart Sounds: Present: S1 & S2. Absent: rub, click - Extremities Extremities: no ischemia, pulses intact, pulses symmetrical, No edema Peripheral Pulses: within normal limits - Abdominal General gastrointestinal: Present: soft, non-tender, non-distended, normal bowel sounds Female genitourinary: Present: normal - Integumentary Integumentary: Present: clear, warm, dry - Musculoskeletal Musculoskeletal: gait normal, strength equal bilaterally - Psychiatric Psychiatric: appropriate mood/affect, intact judgment & insight - Neurologic Neurologic: CNII-XII intact, moves all extremities - Allied Health Allied health notes reviewed: nursing, case management Plan Activity: no restrictions Diet: low fat, low cholesterol, low salt Follow up with: PRIMARY CARE, [Primary Care Provider] - 3-5 Days
[2018-09-25] MEDS ORDERED: ALUM-MAG HYDROX-SIMETH 200-200-20MG/5ML PO PRN (15:26)
[2018-09-25] MEDS ORDERED: AFLURIA QUAD 2018-2019 SYRINGE IM ONE (17:30)
[2018-09-25] MEDS: LANOXIN PO SCH (18:00)
[2018-09-25 18:51] VITALS: BP 133/69
== END 2018-09-25 19:53 | disposition home or self-care (01) | DRG 193 ==
LOC: ED 01:55 → 2B-ACE 09:01
PROVIDERS: ADMIT Internal Medicine; ATTEND Internal Medicine
PROC: 4A033R1 Measurement of Arterial Saturation, Peripheral, Percutaneous Approach (ICD-10-PCS; principal; 2018-09-23)
PROC: 5A09457 Assistance with Respiratory Ventilation, 24-96 Consecutive Hours, Continuous Positive Airway Pressure (ICD-10-PCS; 2018-09-23)
DX: J18.1 Lobar pneumonia, unspecified organism (principal); J96.01 Acute respiratory failure with hypoxia; J44.1 Chronic obstructive pulmonary disease with (acute) exacerbation; E44.0 Moderate protein-calorie malnutrition; J44.0 Chronic obstructive pulmonary disease with (acute) lower respiratory infection; Z68.1 Body mass index [BMI] 19.9 or less, adult; Z88.0 Allergy status to penicillin; G89.29 Other chronic pain; E11.42 Type 2 diabetes mellitus with diabetic polyneuropathy; Z82.49 Family history of ischemic heart disease and other diseases of the circulatory system; Z79.82 Long term (current) use of aspirin; Z79.899 Other long term (current) drug therapy
CPT/HCPCS: 36415; 36600; 71045; 80053; 81001; 82550; 82553; 82803; 82962; 83036; 83735; 84484; 85025; 85730; 87040; 90686; 93005; 93010; 94640; 94660; 94760; G0378; J1170; J1650; J1815; J1956; J2270; J2405; J2930

== ENCOUNTER 2018-10-26 22:13 | Emergency (ER) | payer MEDICARE ==
[2018-10-27] MEDS ORDERED: NORCO 5/325 PO ONE (00:02)
[2018-10-27] MEDS ORDERED: PROVENTIL IH ONE (00:08)
[2018-10-27] MEDS ORDERED: ATROVENT IH ONE (00:08)
[2018-10-27 00:09] LABS: Basophils # (Auto) 0.1 K/mm3 (0.0-0.1); Eosinophils # (Auto) 0.3 K/mm3 (0.0-0.4); Eosinophils % (Auto) 4.4 % (0.0-4.3); Hematocrit 39.5 % (30.3-42.9); Hemoglobin 13.1 gm/dl (10.1-14.3); Lymphocytes # (Auto) 1.5 K/mm3 (1.2-5.4); Lymphocytes % (Auto) 19.4 % (13.4-35.0); Mean Corpuscular HGB Conc 33 % (30-34); Mean Corpuscular Volume 96 fl (79-97); Monocytes # (Auto) 0.8 K/mm3 (0.0-0.8); Platelet Count 340 K/mm3 (140-440); Red Blood Count 4.11 M/mm3 (3.65-5.03); Red Cell Distribution Width 14.9 % (13.2-15.2)
--- NOTE | 2018-10-27 00:15 | XRay Report ---
FINAL REPORT PROCEDURE: XR CHEST ROUTINE 2V TECHNIQUE: PA and lateral chest radiographs were obtained. CPT 64161 HISTORY: Chest Pain COMPARISON: 09/23/2018 FINDINGS: Heart: Normal. Mediastinum/Vessels: Normal. Lungs/Pleural space: There are mild chronic obstructive changes in both lungs. No effusion or pneumot horax.. Bony thorax: No acute osseous abnormality. Other: IMPRESSION: Mild COPD. No acute infiltrate or effusion.
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
[2018-10-27 00:34] LABS: Alanine Aminotransferase 6 units/L (7-56); Albumin 3.8 g/dL (3.9-5); BUN/Creatinine Ratio 25; Blood Urea Nitrogen 10 mg/dL (7-17); Calcium 9.2 mg/dL (8.4-10.2); Hemolysis Index 13
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
[2018-10-27 04:03] VITALS: BP 124/82
== END 2018-10-27 03:30 | disposition home or self-care (01) ==
LOC: ED 22:13
DX: S22.20XA Unspecified fracture of sternum, initial encounter for closed fracture (principal); J44.9 Chronic obstructive pulmonary disease, unspecified; I50.9 Heart failure, unspecified; E11.9 Type 2 diabetes mellitus without complications; M79.10 Myalgia, unspecified site; Z87.891 Personal history of nicotine dependence; Z90.710 Acquired absence of both cervix and uterus; Z79.82 Long term (current) use of aspirin; Z88.0 Allergy status to penicillin; W20.8XXA Other cause of strike by thrown, projected or falling object, initial encounter; Y93.89 Activity, other specified; Y92.89 Other specified places as the place of occurrence of the external cause; Y99.8 Other external cause status
CPT/HCPCS: 36415; 70450; 71046; 71275; 80053; 80162; 84484; 85025; 93005; 93010; 94640; 99285; Q9967

== ENCOUNTER 2019-08-15 13:42 | Inpatient (IN) | payer MEDICARE ==
[2019-08-15] MEDS ORDERED: IPRATROPIUM 0.02% NEBU 2.5 ML IH ONE ×2 (13:53→14:08)
[2019-08-15] MEDS ORDERED: ALBUTEROL 2.5 MG/3 ML NEBU IH ONE ×2 (13:53→14:08)
--- NOTE | 2019-08-15 14:29 | XRay Report ---
CHEST 1 VIEW 08/15/2019 2:04 PM INDICATION / CLINICAL INFORMATION: Dyspnea. COPD and CHF. COMPARISON: Images dated 10/26/18 are not available at the current time. Report was reviewed. FINDINGS: SUPPORT DEVICES: None. HEART / MEDIASTINUM: No significant abnormality. LUNGS / PLEURA: Streaky/patchy parenchymal density at the right lung base could represent infiltrate. No definite interstitial edema. No pneumothorax. ADDITIONAL FINDINGS: No significant additional findings. IMPRESSION: 1. Right lung base infiltrate, possible pneumonia. Signer Name: David Riddle MD Signed: 08/15/2019 2:24 PM Workstation Name: [id number]
[2019-08-15 14:38] LABS: Hematocrit 38.1 % (30.3-42.9); Hemoglobin 12.3 gm/dl (10.1-14.3); Mean Corpuscular HGB Conc 32 % (30-34); Mean Corpuscular Volume 97 fl (79-97); Platelet Count 223 K/mm3 (140-440); Red Blood Count 3.91 M/mm3 (3.65-5.03); Red Cell Distribution Width 13.8 % (13.2-15.2)
[2019-08-15 14:47] LABS: INR 1.08 (0.87-1.13)
[2019-08-15 14:49] LABS: Partial Thromboplastin Time 25.8 Sec. (24.2-36.6)
[2019-08-15 15:04] LABS: Alanine Aminotransferase 6 units/L (7-56); Albumin 3.6 g/dL (3.9-5); BUN/Creatinine Ratio 58; Blood Urea Nitrogen 23 mg/dL (7-17); Calcium 9.1 mg/dL (8.4-10.2); Hemolysis Index 20
[2019-08-15 15:28] LABS: Basophils % (Manual) 0 % (0.0-1.8); Eosinophils % (Manual) 0 % (0.0-4.3); RBC Morphology Normal; Total Cells Counted 100
[2019-08-15] MEDS ORDERED: methylPREDNISolone Sod Succinate 125 MG/2 ML INJ IV ONE (15:37)
--- NOTE | 2019-08-15 15:58 | Emergency Department Report ---
ED Shortness of Breath HPI - General Chief Complaint: Dyspnea/Respdistress Stated Complaint: FÉLIX Time Seen by Provider: 08/15/19 13:56 Source: EMS Mode of arrival: Stretcher Limitations: No Limitations - History of Present Illness Initial Comments: 64-year-old female with a past medical history of COPD and home oxygen dependence, CHF, and diabetes presents to the hospital with respiratory distress alteration in mental status. EMS reports that patient was unresponsive, cyanotic, with room air saturation of 45% in the field. Patient was placed on CPAP for transport and O2 sat increased to 97%. Patient was also treated with albuterol 2.5 mg Atrovent 0.5 mg and brought to the hospital. Blood glucose 96%. She presents lethargic but able to open her eyes to voice and response to questions. - Related Data Home Medications Medication Instructions Recorded Confirmed Last Taken Aspirin [Aspirin EC] 81 mg PO QDAY 09/23/18 08/16/19 Unknown Baclofen [Lioresal] 10 mg PO BID 09/23/18 08/16/19 Unknown Buprenorphine 1 dose TD 1XW 09/23/18 08/16/19 Unknown Digoxin 125 mcg PO QDAY 09/23/18 08/16/19 Unknown traMADoL [Ultram] 50 mg PO Q6HR PRN 09/23/18 08/16/19 Unknown Previous Rx's Medication Instructions Recorded Last Taken Type Detemir (Nf) [Levemir (Nf)] 12 unit SQ QHS #5 pen 09/25/18 Unknown Rx Digoxin 125 mcg PO QDAY #30 tablet 09/25/18 Unknown Rx Enoxaparin 40 mg SUB-Q QDAY@1000 syringe 09/25/18 Unknown Rx Fluticasone Propionate [Flovent 2 puff INHALATION BID #1 aer.w.adap 09/25/18 Unknown Rx Hfa] Gabapentin [Neurontin] 600 mg PO TID #90 tablet 09/25/18 Unknown Rx Ipratropium/Albuterol Sulfate 1 ampul IH QIDRT #100 ampul.neb 09/25/18 Unknown Rx [DUONEB *Not for PRN Use*] Prednisone [predniSONE 10 mg 10 mg PO .TAPER #1 tab.ds.pk 09/25/18 Unknown Rx (6-Day Pack, 21 Tabs)] Theophylline Anhydrous ER [Theodur] 300 mg PO Q12HR #60 tablet 09/25/18 Unknown Rx levoFLOXacin [Levaquin TAB] 500 mg PO QDAY #8 tablet 09/25/18 Unknown Rx tiZANidine [Zanaflex 4mg TAB] 4 mg PO Q8H PRN #30 tablet 09/25/18 Unknown Rx Budesonide/Formoterol Fumarate 2 puff INHALATION BID #1 hfa.aer.ad 10/27/18 Unknown Rx [Symbicort 160-4.5 Mcg Inhaler] Cyclobenzaprine [Flexeril] 10 mg PO TID PRN #14 tablet 10/27/18 Unknown Rx Ibuprofen [Motrin 800 MG tab] 800 mg PO Q8HR PRN #20 tablet 10/27/18 Unknown Rx oxyCODONE /ACETAMINOPHEN [Percocet 1 - 2 tab PO Q6HR PRN #30 tablet 10/27/18 Unknown Rx 5/325] Allergies Allergy/AdvReac Type Severity Reaction Status Date / Time Penicillins AdvReac Severe Anaphylaxis Verified 09/23/18 02:53 ED Review of Systems ROS: Stated complaint: FÉLIX Other details as noted in HPI Comment: All other systems reviewed and negative ED Past Medical Hx - Past Medical History Previous Medical History?: Yes Hx Congestive Heart Failure: Yes Hx Diabetes: Yes Hx COPD: Yes (on home oxygen 3.5 L nasal cannula) - Surgical History Past Surgical History?: Yes Additional Surgical History: Hysterectomy - Social History Smoking Status: Unknown if ever smoked Substance Use Type: None - Medications Home Medications: Home Medications Medication Instructions Recorded Confirmed Last Taken Type Aspirin [Aspirin EC] 81 mg PO QDAY 09/23/18 08/16/19 Unknown History Baclofen [Lioresal] 10 mg PO BID 09/23/18 08/16/19 Unknown History Buprenorphine 1 dose TD 1XW 09/23/18 08/16/19 Unknown History Digoxin 125 mcg PO QDAY 09/23/18 08/16/19 Unknown History traMADoL [Ultram] 50 mg PO Q6HR PRN 09/23/18 08/16/19 Unknown History Detemir (Nf) [Levemir (Nf)] 12 unit SQ QHS #5 pen 09/25/18 08/16/19 Unknown Rx Digoxin 125 mcg PO QDAY #30 tablet 09/25/18 08/16/19 Unknown Rx Enoxaparin 40 mg SUB-Q QDAY@1000 syringe 09/25/18 08/16/19 Unknown Rx Fluticasone Propionate [Flovent 2 puff INHALATION BID #1 aer.w.adap 09/25/18 08/16/19 Unknown Rx Hfa] Gabapentin [Neurontin] 600 mg PO TID #90 tablet 09/25/18 08/16/19 Unknown Rx Ipratropium/Albuterol Sulfate 1 ampul IH QIDRT #100 ampul.neb 09/25/18 08/16/19 Unknown Rx [DUONEB *Not for PRN Use*] Prednisone [predniSONE 10 mg 10 mg PO .TAPER #1 tab.ds.pk 09/25/18 08/16/19 Unknown Rx (6-Day Pack, 21 Tabs)] Theophylline Anhydrous ER [Theodur] 300 mg PO Q12HR #60 tablet 09/25/18 08/16/19 Unknown Rx levoFLOXacin [Levaquin TAB] 500 mg PO QDAY #8 tablet 09/25/18 08/16/19 Unknown Rx tiZANidine [Zanaflex 4mg TAB] 4 mg PO Q8H PRN #30 tablet 09/25/18 08/16/19 Unknown Rx Budesonide/Formoterol Fumarate 2 puff INHALATION BID #1 hfa.aer.ad 10/27/18 08/16/19 Unknown Rx [Symbicort 160-4.5 Mcg Inhaler] Cyclobenzaprine [Flexeril] 10 mg PO TID PRN #14 tablet 10/27/18 08/16/19 Unknown Rx Ibuprofen [Motrin 800 MG tab] 800 mg PO Q8HR PRN #20 tablet 10/27/18 08/16/19 Unknown Rx oxyCODONE /ACETAMINOPHEN [Percocet 1 - 2 tab PO Q6HR PRN #30 tablet 10/27/18 08/16/19 Unknown Rx 5/325] ED Physical Exam - General Limitations: No Limitations - Other Other exam information: General: No acute distress Head: Atraumatic Eyes: normal appearance ENT: Moist mucous membranes Neck: Normal appearance, no midline tenderness Chest: Tachypnea, diminished breath sounds bilaterally, placed no BiPAP support upon arrival CV: Regular rate and rhythm Abdomen: Soft, normal bowel sounds, nontender, nondistended, no rebound or guarding Back: Normal inspection Extremity: leg edema Neuro: Alert O x 3, no facial asymmetry, speech clear, no gross motor sensory deficit Psych: Appropriate behavior Skin: Generalized edema to the face and lower extremities ED Course Vital Signs 08/15/19 08/15/19 08/15/19 13:50 13:51 13:52 Temperature Pulse Rate 109 H 105 H Pulse Rate [ 99 H Anterior Bilateral Throughout] Respiratory 18 Rate Respiratory 18 Rate [Anterior Bilateral Throughout] Blood Pressure 115/64 115/64 O2 Sat by Pulse 84 94 Oximetry 08/15/19 08/15/19 08/15/19 14:29 14:30 14:46 Temperature Pulse Rate 100 H 99 H 98 H Pulse Rate [ Anterior Bilateral Throughout] Respiratory 17 16 17 Rate Respiratory Rate [Anterior Bilateral Throughout] Blood Pressure 117/60 117/60 118/59 O2 Sat by Pulse 95 95 99 Oximetry 08/15/19 08/15/19 08/15/19 14:52 15:00 15:16 Temperature Pulse Rate 99 H 94 H 96 H Pulse Rate [ Anterior Bilateral Throughout] Respiratory 18 22 21 Rate Respiratory Rate [Anterior Bilateral Throughout] Blood Pressure 115/59 118/59 112/59 O2 Sat by Pulse 100 100 Oximetry 08/15/19 08/15/19 08/15/19 15:30 15:46 16:00 Temperature Pulse Rate 91 H 92 H 91 H Pulse Rate [ Anterior Bilateral Throughout] Respiratory 18 18 22 Rate Respiratory Rate [Anterior Bilateral Throughout] Blood Pressure 112/59 115/57 115/57 O2 Sat by Pulse 100 100 100 Oximetry 08/15/19 08/15/19 08/15/19 16:02 16:16 16:25 Temperature 99.3 F Pulse Rate 94 H 95 H Pulse Rate [ Anterior Bilateral Throughout] Respiratory 17 23 Rate Respiratory Rate [Anterior Bilateral Throughout] Blood Pressure 105/60 105/60 O2 Sat by Pulse 100 100 Oximetry 08/15/19 08/15/19 08/15/19 16:30 16:46 17:00 Temperature Pulse Rate 95 H 95 H 98 H Pulse Rate [ Anterior Bilateral Throughout] Respiratory 19 21 13 Rate Respiratory Rate [Anterior Bilateral Throughout] Blood Pressure 105/60 115/62 115/62 O2 Sat by Pulse 100 100 96 Oximetry 08/15/19 08/15/19 08/15/19 17:16 17:30 17:46 Temperature Pulse Rate 90 95 H 90 Pulse Rate [ Anterior Bilateral Throughout] Respiratory 18 13 12 Rate Respiratory Rate [Anterior Bilateral Throughout] Blood Pressure 106/61 106/61 113/53 O2 Sat by Pulse 98 98 99 Oximetry 08/15/19 08/15/19 08/15/19 17:54 18:00 18:16 Temperature Pulse Rate 87 88 85 Pulse Rate [ Anterior Bilateral Throughout] Respiratory 20 20 20 Rate Respiratory Rate [Anterior Bilateral Throughout] Blood Pressure 113/53 113/53 104/57 O2 Sat by Pulse 99 99 Oximetry 08/15/19 08/15/19 08/15/19 18:30 18:46 18:50 Temperature Pulse Rate 84 84 85 Pulse Rate [ Anterior Bilateral Throughout] Respiratory 13 19 20 Rate Respiratory Rate [Anterior Bilateral Throughout] Blood Pressure 97/61 104/57 104/57 O2 Sat by Pulse 98 99 99 Oximetry 08/15/19 08/15/19 20:44 20:52 Temperature Pulse Rate 95 H Pulse Rate [ 91 H Anterior Bilateral Throughout] Respiratory 20 Rate Respiratory 18 Rate [Anterior Bilateral Throughout] Blood Pressure 108/53 O2 Sat by Pulse 100 Oximetry - Reevaluation(s) Reevaluation #1: 08/15/19 18:04 repeat (3rd) abg shows persistant respiratory acidosis with some mild improvement. case redisussed with Dr Magaña. Rec to continue on current settings. as long as Po2 is 63, and sat over 88%. pt is more easily arousable at this time - Consultations Consultation #1: 08/15/19 16:39 case d/w Dr Archana samayoa, made recommendations in bipap orders. plan to recheck abg in 1 hour. ED Medical Decision Making - Lab Data Result diagrams: 08/15/19 14:16 08/15/19 14:16 Lab Results 08/15/19 08/15/19 08/15/19 Range/Units 14:16 14:16 14:16 WBC 16.1 H (4.5-11.0) K/mm3 RBC 3.91 (3.65-5.03) M/mm3 Hgb 12.3 (10.1-14.3) gm/dl Hct 38.1 (30.3-42.9) % MCV 97 (79-97) fl MCH 31 (28-32) pg MCHC 32 (30-34) % RDW 13.8 (13.2-15.2) % Plt Count 223 (140-440) K/mm3 Add Manual Diff Complete Total Counted 100 Seg Neutrophils % Painter Plate Seg Neuts % (Manual) 84.0 H (40.0-70.0) % Band Neutrophils % 0 % Lymphocytes % (Manual) 6.0 L (13.4-35.0) % Reactive Lymphs % (Man) 0 % Monocytes % (Manual) 10.0 H (0.0-7.3) % Eosinophils % (Manual) 0 (0.0-4.3) % Basophils % (Manual) 0 (0.0-1.8) % Metamyelocytes % 0 % Myelocytes % 0 % Promyelocytes % 0 % Blast Cells % 0 % Nucleated RBC % Not Reportable Seg Neutrophils # Man 13.5 H (1.8-7.7) K/mm3 Band Neutrophils # 0.0 K/mm3 Lymphocytes # (Manual) 1.0 L (1.2-5.4) K/mm3 Abs React Lymphs (Man) 0.0 K/mm3 Monocytes # (Manual) 1.6 H (0.0-0.8) K/mm3 Eosinophils # (Manual) 0.0 (0.0-0.4) K/mm3 Basophils # (Manual) 0.0 (0.0-0.1) K/mm3 Metamyelocytes # 0.0 K/mm3 Myelocytes # 0.0 K/mm3 Promyelocytes # 0.0 K/mm3 Blast Cells # 0.0 K/mm3 WBC Morphology Not Reportable Hypersegmented Neuts Not Reportable Hyposegmented Neuts Not Reportable Hypogranular Neuts Not Reportable Smudge Cells Not Reportable Toxic Granulation Not Reportable Toxic Vacuolation Not Reportable Dohle Bodies Not Reportable Pelger-Huet Anomaly Not Reportable Gaye Rods Not Reportable Platelet Estimate Not Reportable Clumped Platelets Not Reportable Plt Clumps, EDTA Not Reportable Large Platelets Not Reportable Giant Platelets Not Reportable Platelet Satelliting Not Reportable Plt Morphology Comment Not Reportable RBC Morphology Normal Dimorphic RBCs Not Reportable Polychromasia Not Reportable Hypochromasia Not Reportable Poikilocytosis Not Reportable Anisocytosis Not Reportable Microcytosis Not Reportable Macrocytosis Not Reportable Spherocytes Not Reportable Pappenheimer Bodies Not Reportable Sickle Cells Not Reportable Target Cells Not Reportable Tear Drop Cells Not Reportable Ovalocytes Not Reportable Helmet Cells Not Reportable [place] Bodies Not Reportable Stephens Rings Not Reportable [place] Cells Not Reportable Bite Cells Not Reportable Crenated Cell Not Reportable Elliptocytes Not Reportable Acanthocytes (Spur) Not Reportable Rouleaux Not Reportable Hemoglobin C Crystals Not Reportable Schistocytes Not Reportable Malaria parasites Not Reportable Qasim Bodies Not Reportable Hem Pathologist Commnt No PT 13.9 (12.2-14.9) Sec. INR 1.08 (0.87-1.13) APTT 25.8 (24.2-36.6) Sec. POC ABG pH (7.35-7.45) POC ABG pO2 (80-105) POC ABG HCO3 (22-26 mml/L) POC ABG Total CO2 (23-27mmol/L) POC ABG O2 Sat POC ABG Base Excess ((-2) - (+3)mmol/L) FiO2 % Sodium 146 H (137-145) mmol/L Potassium 4.2 (3.6-5.0) mmol/L Chloride 93.8 L (98-107) mmol/L Carbon Dioxide 32 H (22-30) mmol/L Anion Gap 24 mmol/L BUN 23 H (7-17) mg/dL Creatinine 0.4 L (0.7-1.2) mg/dL Estimated GFR > 60 ml/min BUN/Creatinine Ratio 58 % Glucose 97 (65-100) mg/dL Calcium 9.1 (8.4-10.2) mg/dL Total Bilirubin 0.30 (0.1-1.2) mg/dL AST 10 (5-40) units/L ALT 6 L (7-56) units/L Alkaline Phosphatase 69 (35-129) units/L Troponin T < 0.010 (0.00-0.029) ng/mL NT-Pro-B Natriuret Pep (0-900) pg/mL Total Protein 6.5 (6.3-8.2) g/dL Albumin 3.6 L (3.9-5) g/dL Albumin/Globulin Ratio 1.2 % 08/15/19 08/15/19 08/15/19 Range/Units 14:16 14:53 16:35 WBC (4.5-11.0) K/mm3 RBC (3.65-5.03) M/mm3 Hgb (10.1-14.3) gm/dl Hct (30.3-42.9) % MCV (79-97) fl MCH (28-32) pg MCHC (30-34) % RDW (13.2-15.2) % Plt Count (140-440) K/mm3 Add Manual Diff Total Counted Seg Neutrophils % Seg Neuts % (Manual) (40.0-70.0) % Band Neutrophils % % Lymphocytes % (Manual) (13.4-35.0) % Reactive Lymphs % (Man) % Monocytes % (Manual) (0.0-7.3) % Eosinophils % (Manual) (0.0-4.3) % Basophils % (Manual) (0.0-1.8) % Metamyelocytes % % Myelocytes % % Promyelocytes % % Blast Cells % % Nucleated RBC % Seg Neutrophils # Man (1.8-7.7) K/mm3 Band Neutrophils # K/mm3 Lymphocytes # (Manual) (1.2-5.4) K/mm3 Abs React Lymphs (Man) K/mm3 Monocytes # (Manual) (0.0-0.8) K/mm3 Eosinophils # (Manual) (0.0-0.4) K/mm3 Basophils # (Manual) (0.0-0.1) K/mm3 Metamyelocytes # K/mm3 Myelocytes # K/mm3 Promyelocytes # K/mm3 Blast Cells # K/mm3 WBC Morphology Hypersegmented Neuts Hyposegmented Neuts Hypogranular Neuts Smudge Cells Toxic Granulation Toxic Vacuolation Dohle Bodies Pelger-Huet Anomaly Gaye Rods Platelet Estimate Clumped Platelets Plt Clumps, EDTA Large Platelets Giant Platelets Platelet Satelliting Plt Morphology Comment RBC Morphology Dimorphic RBCs Polychromasia Hypochromasia Poikilocytosis Anisocytosis Microcytosis Macrocytosis Spherocytes Pappenheimer Bodies Sickle Cells Target Cells Tear Drop Cells Ovalocytes Helmet Cells [place] Bodies Stephens Rings Ascencion Cells Bite Cells Crenated Cell Elliptocytes Acanthocytes (Spur) Rouleaux Hemoglobin C Crystals Schistocytes Malaria parasites Qasim Bodies Hem Pathologist Commnt PT (12.2-14.9) Sec. INR (0.87-1.13) APTT (24.2-36.6) Sec. POC ABG pH 7.259 L 7.230 L (7.35-7.45) POC ABG pO2 88 198 H (80-105) POC ABG HCO3 43.3 43.4 (22-26 mml/L) POC ABG Total CO2 46 46 (23-27mmol/L) POC ABG O2 Sat 94 99 POC ABG Base Excess 16 16 ((-2) - (+3)mmol/L) FiO2 70 70 % Sodium (137-145) mmol/L Potassium (3.6-5.0) mmol/L Chloride (98-107) mmol/L Carbon Dioxide (22-30) mmol/L Anion Gap mmol/L BUN (7-17) mg/dL Creatinine (0.7-1.2) mg/dL Estimated GFR ml/min BUN/Creatinine Ratio % Glucose (65-100) mg/dL Calcium (8.4-10.2) mg/dL Total Bilirubin (0.1-1.2) mg/dL AST (5-40) units/L ALT (7-56) units/L Alkaline Phosphatase (35-129) units/L Troponin T (0.00-0.029) ng/mL NT-Pro-B Natriuret Pep 1140 H (0-900) pg/mL Total Protein (6.3-8.2) g/dL Albumin (3.9-5) g/dL Albumin/Globulin Ratio % - EKG Data -: EKG Interpreted by Nh EKG shows normal: sinus rhythm, ST-T waves (no stemi) Rate: normal (94) - Radiology Data Radiology results: report reviewed CHEST 1 VIEW 08/15/2019 2:04 PM INDICATION / CLINICAL INFORMATION: Dyspnea. COPD and CHF. COMPARISON: Images dated 10/26/18 are not available at the current time. Report was reviewed. FINDINGS: SUPPORT DEVICES: None. HEART / MEDIASTINUM: No significant abnormality. LUNGS / PLEURA: Streaky/patchy parenchymal density at the right lung base could represent infiltrate. No definite interstitial edema. No pneumothorax. ADDITIONAL FINDINGS: No significant additional findings. IMPRESSION: 1. Right lung base infiltrate, possible pneumonia. - Medical Decision Making 64-year-old female presents to Hospital COPD exacerbation was several retention and possible infiltrate on chest x-ray. Patient placed on CPAP prior to arrival and BiPAP upon arrival to the ED. Repeat ABG after initial shows some slight worsening or respiratory acidosis. Case was discussed with digital coordinator Dr. Magaña and adjustments and BiPAP had been made. Case discussed with the hospitalist and patient to be admitted to the CCU. - Differential Diagnosis pneumonia, bronchitis, CO2 retention, cephalopathy Critical Care Time: No Critical care attestation.: If time is entered above; I have spent that time in minutes in the direct care of this critically ill patient, excluding procedure time. ED Disposition Clinical Impression: COPD with exacerbation, Carbon dioxide retention, RLL pneumonia Disposition: OP ADMIT IP TO THIS HOSP Is pt being admited?: Yes Condition: Stable Time of Disposition: 16:46 (Dr Rojas/[facility])
--- NOTE | 2019-08-15 18:30 | History and Physical Report ---
History of Present Illness Date of examination: 08/15/19 Date of admission: 08/15/19 Chief complaint: Difficulty breathing History of present illness: 64-year-old female with a past medical history of COPD and home oxygen dependence, CHF, and diabetes presents to the hospital with respiratory distress and alteration in mental status. EMS reports that patient was unresponsive, cyanotic, with room air saturation of 45% in the field. Patient was placed on CPAP for transport and O2 sat increased to 97%. Patient was also treated with albuterol 2.5 mg Atrovent 0.5 mg and brought to the hospital. Blood glucose 96%. She presents lethargic but able to open her eyes to voice and response to questions. No family at the bedside, no further details available. She is placed on BiPAP in the ER, given iv abx, CXR showed Right sided PNA, she is being admitted for further Mx Review of System: Unobtainable as she is on continuous BiPAP Medications and Allergies Allergies Allergy/AdvReac Type Severity Reaction Status Date / Time Penicillins AdvReac Severe Anaphylaxis Verified 09/23/18 02:53 Home Medications Medication Instructions Recorded Confirmed Last Taken Type Aspirin [Aspirin EC] 81 mg PO QDAY 09/23/18 08/16/19 Unknown History Baclofen [Lioresal] 10 mg PO BID 09/23/18 08/16/19 Unknown History Buprenorphine 1 dose TD 1XW 09/23/18 08/16/19 Unknown History Digoxin 125 mcg PO QDAY 09/23/18 08/16/19 Unknown History traMADoL [Ultram] 50 mg PO Q6HR PRN 09/23/18 08/16/19 Unknown History Detemir (Nf) [Levemir (Nf)] 12 unit SQ QHS #5 pen 09/25/18 08/16/19 Unknown Rx Digoxin 125 mcg PO QDAY #30 tablet 09/25/18 08/16/19 Unknown Rx Enoxaparin 40 mg SUB-Q QDAY@1000 syringe 09/25/18 08/16/19 Unknown Rx Fluticasone Propionate [Flovent 2 puff INHALATION BID #1 aer.w.adap 09/25/18 08/16/19 Unknown Rx Hfa] Gabapentin [Neurontin] 600 mg PO TID #90 tablet 09/25/18 08/16/19 Unknown Rx Ipratropium/Albuterol Sulfate 1 ampul IH QIDRT #100 ampul.neb 09/25/18 08/16/19 Unknown Rx [DUONEB *Not for PRN Use*] Prednisone [predniSONE 10 mg 10 mg PO .TAPER #1 tab.ds.pk 09/25/18 08/16/19 Unknown Rx (6-Day Pack, 21 Tabs)] Theophylline Anhydrous ER [Theodur] 300 mg PO Q12HR #60 tablet 09/25/18 08/16/19 Unknown Rx levoFLOXacin [Levaquin TAB] 500 mg PO QDAY #8 tablet 09/25/18 08/16/19 Unknown Rx tiZANidine [Zanaflex 4mg TAB] 4 mg PO Q8H PRN #30 tablet 09/25/18 08/16/19 Unknown Rx Budesonide/Formoterol Fumarate 2 puff INHALATION BID #1 hfa.aer.ad 10/27/18 08/16/19 Unknown Rx [Symbicort 160-4.5 Mcg Inhaler] Cyclobenzaprine [Flexeril] 10 mg PO TID PRN #14 tablet 10/27/18 08/16/19 Unknown Rx Ibuprofen [Motrin 800 MG tab] 800 mg PO Q8HR PRN #20 tablet 10/27/18 08/16/19 Unknown Rx oxyCODONE /ACETAMINOPHEN [Percocet 1 - 2 tab PO Q6HR PRN #30 tablet 10/27/18 08/16/19 Unknown Rx 5/325] Exam - Physical Exam Narrative exam: GENERAL: well-developed and well-nourished elderly WF lying on bed appeared to be in moderate discomfort. HEENT: Normocephalic. Atraumatic. No conjunctival congestion or icterus. Patient has dry mucous membranes. NECK: Supple. Trachea midline. on BiPAP CHEST/LUNGS: coarse BS auscultated bilaterally, breathing labored. HEART/CARDIOVASCULAR: Regular in rate and rhythm. S1 and S2 positive. ABDOMEN: Abdomen is soft, nontender. Patient has normal bowel sounds. SKIN: There is no rash. Warm and dry. NEURO: No focal motor deficit. moves extremities. opens eye with verbal commend. MUSCULOSKELETAL: No joint effusion or tenderness. EXTRIMITY: No edema, no cyanosis or clubbing. PSYCH: upable to assess. - Constitutional Vitals: Temp Pulse Resp BP Pulse Ox 99.3 F 87 20 113/53 100 08/15/19 16:02 08/15/19 17:54 08/15/19 17:54 08/15/19 17:54 08/15/19 16:25 Results - Labs CBC & Chem 7: 08/15/19 14:16 08/15/19 14:16 Labs: Abnormal lab results 08/15/19 08/15/19 08/15/19 Range/Units 14:16 14:16 14:16 WBC 16.1 H (4.5-11.0) K/mm3 Seg Neuts % (Manual) 84.0 H (40.0-70.0) % Lymphocytes % (Manual) 6.0 L (13.4-35.0) % Monocytes % (Manual) 10.0 H (0.0-7.3) % Seg Neutrophils # Man 13.5 H (1.8-7.7) K/mm3 Lymphocytes # (Manual) 1.0 L (1.2-5.4) K/mm3 Monocytes # (Manual) 1.6 H (0.0-0.8) K/mm3 POC ABG pH (7.35-7.45) POC ABG pO2 (80-105) Sodium 146 H (137-145) mmol/L Chloride 93.8 L (98-107) mmol/L Carbon Dioxide 32 H (22-30) mmol/L BUN 23 H (7-17) mg/dL Creatinine 0.4 L (0.7-1.2) mg/dL ALT 6 L (7-56) units/L NT-Pro-B Natriuret Pep 1140 H (0-900) pg/mL Albumin 3.6 L (3.9-5) g/dL 08/15/19 08/15/19 08/15/19 Range/Units 14:53 16:35 18:09 WBC (4.5-11.0) K/mm3 Seg Neuts % (Manual) (40.0-70.0) % Lymphocytes % (Manual) (13.4-35.0) % Monocytes % (Manual) (0.0-7.3) % Seg Neutrophils # Man (1.8-7.7) K/mm3 Lymphocytes # (Manual) (1.2-5.4) K/mm3 Monocytes # (Manual) (0.0-0.8) K/mm3 POC ABG pH 7.259 L 7.230 L 7.245 L (7.35-7.45) POC ABG pO2 198 H 63 L (80-105) Sodium (137-145) mmol/L Chloride (98-107) mmol/L Carbon Dioxide (22-30) mmol/L BUN (7-17) mg/dL Creatinine (0.7-1.2) mg/dL ALT (7-56) units/L NT-Pro-B Natriuret Pep (0-900) pg/mL Albumin (3.9-5) g/dL Assessment and Plan Acute on chronic hypoxic and hypercapnic respiratory failure Acute metabolic encephalopathy from sepsis and hypercapnia Acute COPD exacerbation Right lower lobe pneumonia Sepsis with right lower lobe pneumonia Insulin-dependent diabetes mellitus type 2 Chronic pain syndrome Diabetic neuropathy - - We'll admit the patient to ICU, placed on BiPAP - Will provide scheduled nebulizer breathing treatment and as needed - Place on empiric steroid and antibiotic - will get sputum culture, blood cx - Provide supplemental oxygen to keep oxygen saturation above 92% - Consult pulmonary, wean off BiPAP as tolerates - We'll place on sliding scale of insulin, consistent carb diet - We will resume home medications, monitor BP - Provide DVT prophylaxis with Lovenox. Radiological data: Chest x-ray: 1. Right lung base infiltrate, possible pneumonia. The high probability of a clinically significant, sudden or life threatening deterioration of the [multiple] system(s) required my full and direct attention, intervention and personal management. The aggregate critical care time was [42] minutes. This time is in addition to time spent performing reported procedures but includes the following: [x] Data Review and interpretation [x] Patient assessment and monitoring of vital signs [x] Documentation [x] Medication orders and management
[2019-08-15] MEDS ORDERED: oxyCODONE /ACETAMINOPHEN 5-325MG TAB PO PRN (18:32)
[2019-08-15] MEDS ORDERED: BUDESONIDE 0.5 MG/2 ML NEBU IH ONE (20:44)
[2019-08-15] MEDS ORDERED: ARFORMOTEROL 15 MCG/2 ML NEBU IH ONE (20:45)
[2019-08-15] MEDS ORDERED: IPRATROPIUM/ALBUTEROL SULFATE 3 ML AMPUL.NEB IH ONE (20:45)
[2019-08-15] MEDS: BUDESONIDE 0.5 MG/2 ML NEBU IH SCH (20:50)
[2019-08-15] MEDS: IPRATROPIUM/ALBUTEROL SULFATE 3 ML AMPUL.NEB IH SCH (20:51)
[2019-08-15] MEDS: ARFORMOTEROL 15 MCG/2 ML NEBU IH SCH (20:52)
[2019-08-15] MEDS ORDERED: NON-FORMULARY EACH (Budesonide/Formoterol Fumarate [Symbicort 160-4.5 Mcg Inhaler] 2 PUFF) INHALATION SCH (22:00)
[2019-08-15] MEDS ORDERED: DETEMIR SQ SCH (22:00)
[2019-08-15] MEDS ORDERED: FLUTICASONE PROPIONATE INHALATION SCH (22:00)
[2019-08-15] MEDS: INSULIN REGULAR, HUMAN 100 UNITS/1 ML SUB-Q SCH (22:09)
[2019-08-15] MEDS: INSULIN GLARGINE 100 UNITS/ML SUB-Q SCH (22:15)
[2019-08-15 22:20] LABS: ABG Base Excess 12.1 mmol/L (-2.0-3.0); ABG HCO3 40.6 mmol/L (20.0-26.0); ABG Methemoglobin 0.6 % (0.0-1.5); ABG Oxygen Saturation 89.1 % (95.0-99.0); ABG PCO2 74.9 mm Hg; ABG PH 7.352 pH Units (7.350-7.450); ABG PO2 52.9 mm Hg (80.0-90.0)
[2019-08-15] MEDS: BACLOFEN 10 MG TAB PO SCH (23:01)
[2019-08-15] MEDS: THEOPHYLLINE ANHYDROUS ER 300 MG TAB PO SCH (23:02)
[2019-08-16] MEDS ORDERED: LIP THERAPY VASELINE TP PRN (05:12)
[2019-08-16] MEDS ORDERED: LIP THERAPY VASELINE TP ONE (05:13)
[2019-08-16] MEDS: IPRATROPIUM/ALBUTEROL SULFATE 3 ML AMPUL.NEB IH SCH (09:07)
[2019-08-16] MEDS: BUDESONIDE 0.5 MG/2 ML NEBU IH SCH ×2 (09:07→22:43)
[2019-08-16] MEDS: ARFORMOTEROL 15 MCG/2 ML NEBU IH SCH ×2 (09:07→22:42)
[2019-08-16] MEDS ORDERED: ALBUTEROL 2.5 MG/3 ML NEBU IH PRN (09:43)
[2019-08-16] MEDS: INSULIN REGULAR, HUMAN 100 UNITS/1 ML SUB-Q SCH ×4 (11:09→23:39)
--- NOTE | 2019-08-16 11:34 | Consultation ---
History of Present Illness Consult date: 08/16/19 Requesting physician: IRMA LEIVA Reason for consult: COPD History of present illness: 64 y/o with known COPD and chronic respiratory failure admitted with acute exacerbation of COPD. Patient normally follows with Dr. Ricco Perry in [place]. Maryanne brought here as this hospital was closest and she was significant d istress. Require bipap most of the night but is now weaned back to her baseline oxygen settings. Remainder of the review is positive for continued smoking despite being on home O2. Past History Past Medical History: CAD, COPD, diabetes Social history: smoking Medications and Allergies Allergies Allergy/AdvReac Type Severity Reaction Status Date / Time Penicillins AdvReac Severe Anaphylaxis Verified 09/23/18 02:53 Home Medications Medication Instructions Recorded Confirmed Last Taken Type Aspirin [Aspirin EC] 81 mg PO QDAY 09/23/18 08/16/19 Unknown History Baclofen [Lioresal] 10 mg PO BID 09/23/18 08/16/19 Unknown History Buprenorphine 1 dose TD 1XW 09/23/18 08/16/19 Unknown History Digoxin 125 mcg PO QDAY 09/23/18 08/16/19 Unknown History traMADoL [Ultram] 50 mg PO Q6HR PRN 09/23/18 08/16/19 Unknown History Detemir (Nf) [Levemir (Nf)] 12 unit SQ QHS #5 pen 09/25/18 08/16/19 Unknown Rx Digoxin 125 mcg PO QDAY #30 tablet 09/25/18 08/16/19 Unknown Rx Enoxaparin 40 mg SUB-Q QDAY@1000 syringe 09/25/18 08/16/19 Unknown Rx Fluticasone Propionate [Flovent 2 puff INHALATION BID #1 aer.w.adap 09/25/18 08/16/19 Unknown Rx Hfa] Gabapentin [Neurontin] 600 mg PO TID #90 tablet 09/25/18 08/16/19 Unknown Rx Ipratropium/Albuterol Sulfate 1 ampul IH QIDRT #100 ampul.neb 09/25/18 08/16/19 Unknown Rx [DUONEB *Not for PRN Use*] Prednisone [predniSONE 10 mg 10 mg PO .TAPER #1 tab.ds.pk 09/25/18 08/16/19 Unknown Rx (6-Day Pack, 21 Tabs)] Theophylline Anhydrous ER [Theodur] 300 mg PO Q12HR #60 tablet 09/25/18 08/16/19 Unknown Rx levoFLOXacin [Levaquin TAB] 500 mg PO QDAY #8 tablet 09/25/18 08/16/19 Unknown Rx tiZANidine [Zanaflex 4mg TAB] 4 mg PO Q8H PRN #30 tablet 09/25/18 08/16/19 Unknown Rx Budesonide/Formoterol Fumarate 2 puff INHALATION BID #1 hfa.aer.ad 10/27/18 08/16/19 Unknown Rx [Symbicort 160-4.5 Mcg Inhaler] Cyclobenzaprine [Flexeril] 10 mg PO TID PRN #14 tablet 10/27/18 08/16/19 Unknown Rx Ibuprofen [Motrin 800 MG tab] 800 mg PO Q8HR PRN #20 tablet 10/27/18 08/16/19 Unknown Rx oxyCODONE /ACETAMINOPHEN [Percocet 1 - 2 tab PO Q6HR PRN #30 tablet 10/27/18 08/16/19 Unknown Rx 5/325] Active Meds: Active Medications Albuterol (Proventil) 2.5 mg IH Q6HRT PRN PRN Reason: Shortness Of Breath Arformoterol Tartrate (Brovana Nebu) 15 mcg IH Q12HRT [facility] Last Admin: 08/16/19 09:07 Dose: 15 mcg Documented by: Aspirin (Halfprin Ec) 81 mg PO QDAY [facility] Baclofen (Lioresal) 10 mg PO BID [facility] Last Admin: 08/15/19 23:01 Dose: Not Given Documented by: Budesonide (Pulmicort) 0.5 mg IH Q12HRT [facility] Last Admin: 08/16/19 09:07 Dose: 0.5 mg Documented by: Digoxin (Lanoxin) 0.125 mg PO QDAY [facility] Enoxaparin Sodium (Enoxaparin) 40 mg SUB-Q QDAY@1000 [facility] Hydrophilic Ointment (Vaseline Lip Therapy) 1 applic TP DIRECT PRN PRN Reason: Dry Lips Insulin Glargine (Lantus) 12 units SUB-Q QHS [facility] Last Admin: 08/15/19 22:15 Dose: 12 units Documented by: Insulin Human Regular (Humulin R) 0 units SUB-Q ACHS [facility]; Protocol Last Admin: 08/16/19 11:09 Dose: Not Given Documented by: Methylprednisolone Sodium Succinate (Solu-Medrol) 60 mg IV Q6HR [facility] Oxycodone/Acetaminophen (Percocet 5/325) 1 tab PO Q6HR PRN PRN Reason: PAIN Pneumococcal Polyvalent Vaccine (Pneumovax 23) 0.5 ml IM .ONCE ONE Stop: 08/16/19 12:01 Theophylline (Theodur) 300 mg PO Q12HR [facility] Last Admin: 08/15/19 23:02 Dose: Not Given Documented by: Review of Systems All systems: negative Physical Examination Vital signs: Vital Signs Pulse Resp 99 H 18 08/15/19 13:50 08/15/19 13:50 General appearance: no acute distress, alert, other (appears older than stated age) Eyes: non-icteric ENT: oropharynx moist Neck: supple Effort: normal Ascultation: Bilateral: diminished breath sounds Percussion: Bilateral: not dull Tactile fremitus: Bilateral: normal Cardiovascular: regular rate and rhythm Gastrointestinal: normoactive bowel sounds, soft Integumentary: normal Extremities: no cyanosis Results - Laboratory Findings CBC and BMP: 08/15/19 14:16 08/15/19 14:16 ABG POC ABG pH 7.245 (7.35-7.45) L 08/15/19 18:09 ABG pH 7.352 pH Units (7.350-7.450) 08/15/19 22:09 ABG pCO2 74.9 mm Hg 08/15/19 22:09 POC ABG pO2 63 (80-105) L 08/15/19 18:09 ABG pO2 52.9 mm Hg (80.0-90.0) L 08/15/19 22:09 POC ABG HCO3 44.0 (22-26 mml/L) 08/15/19 18:09 POC ABG Total CO2 47 (23-27mmol/L) 08/15/19 18:09 POC ABG O2 Sat 85 08/15/19 18:09 ABG O2 Saturation 89.1 % (95.0-99.0) L 08/15/19 22:09 PT/INR, D-dimer PT 13.9 Sec. (12.2-14.9) 08/15/19 14:16 INR 1.08 (0.87-1.13) 08/15/19 14:16 Abnormal lab findings: Abnormal Labs 08/15/19 08/15/19 08/15/19 14:16 14:16 14:16 WBC 16.1 H Seg Neuts % (Manual) 84.0 H Lymphocytes % (Manual) 6.0 L Monocytes % (Manual) 10.0 H Seg Neutrophils # Man 13.5 H Lymphocytes # (Manual) 1.0 L Monocytes # (Manual) 1.6 H POC ABG pH POC ABG pO2 ABG pO2 ABG HCO3 ABG O2 Saturation ABG Base Excess Oxyhemoglobin Sodium 146 H Chloride 93.8 L Carbon Dioxide 32 H BUN 23 H Creatinine 0.4 L POC Glucose ALT 6 L NT-Pro-B Natriuret Pep 1140 H Albumin 3.6 L 08/15/19 08/15/19 08/15/19 14:53 16:35 18:09 WBC Seg Neuts % (Manual) Lymphocytes % (Manual) Monocytes % (Manual) Seg Neutrophils # Man Lymphocytes # (Manual) Monocytes # (Manual) POC ABG pH 7.259 L 7.230 L 7.245 L POC ABG pO2 198 H 63 L ABG pO2 ABG HCO3 ABG O2 Saturation ABG Base Excess Oxyhemoglobin Sodium Chloride Carbon Dioxide BUN Creatinine POC Glucose ALT NT-Pro-B Natriuret Pep Albumin 08/15/19 08/15/19 08/15/19 22:09 22:22 23:52 WBC Seg Neuts % (Manual) Lymphocytes % (Manual) Monocytes % (Manual) Seg Neutrophils # Man Lymphocytes # (Manual) Monocytes # (Manual) POC ABG pH POC ABG pO2 ABG pO2 52.9 L ABG HCO3 40.6 H ABG O2 Saturation 89.1 L ABG Base Excess 12.1 H Oxyhemoglobin 86.8 L Sodium Chloride Carbon Dioxide BUN Creatinine POC Glucose 157 H 157 H ALT NT-Pro-B Natriuret Pep Albumin 08/16/19 02:59 WBC Seg Neuts % (Manual) Lymphocytes % (Manual) Monocytes % (Manual) Seg Neutrophils # Man Lymphocytes # (Manual) Monocytes # (Manual) POC ABG pH POC ABG pO2 ABG pO2 ABG HCO3 ABG O2 Saturation ABG Base Excess Oxyhemoglobin Sodium Chloride Carbon Dioxide BUN Creatinine POC Glucose 156 H ALT NT-Pro-B Natriuret Pep Albumin - Diagnostic Findings Chest x-ray: image reviewed (stable CXR with some scarring in the right base, this is not a new infiltrate as I have reivewed old imaging from prior hospital visit.) Assessment and Plan 64 y/o female with acute on chronic respiratory failure secondary to acute exacerbation of COPD 1. Solumedrol 60q6 for at least the next 24 hours 2. supplemental O2 3. Agree with LABA and ICS BID dosing 4. Changed duonebs to PRN as patient already on scheduled LABA 5. Smoking cessation 6. Stable for transfer out of unit.
[2019-08-16] MEDS: methylPREDNISolone Sod Succinate 40 MG/1 ML INJ IV SCH ×2 (11:50→19:24)
[2019-08-16] MEDS: ENOXAPARIN 40 MG/0.4 ML INJ SUB-Q SCH (11:50)
[2019-08-16] MEDS: THEOPHYLLINE ANHYDROUS ER 300 MG TAB PO SCH ×2 (11:54→23:52)
[2019-08-16] MEDS: ASPIRIN EC 81 MG TAB PO SCH (11:55)
[2019-08-16] MEDS: BACLOFEN 10 MG TAB PO SCH ×2 (11:55→23:52)
[2019-08-16] MEDS: DIGOXIN 0.125 MG TAB PO SCH (11:57)
[2019-08-16] MEDS ORDERED: FLU VACC QUAD 2019-20 (3 YR UP)/PF 60 MCG/0.5 ML SYRINGE IM ONE (12:00)
[2019-08-16] MEDS ORDERED: PNEUMOCOCCAL 23 Valent 0.5 ML VIAL IM ONE (12:00)
--- NOTE | 2019-08-16 16:14 | Progress Note ---
Assessment and Plan CCT 32 min Acute on chronic hypoxic and hypercapnic respiratory failure Acute metabolic encephalopathy from sepsis and hypercapnia Acute COPD exacerbation Right lower lobe pneumonia Sepsis with right lower lobe pneumonia Insulin-dependent diabetes mellitus type 2 Chronic pain syndrome Diabetic neuropathy - Patient on BiPAP - scheduled nebulizer breathing treatment and as needed - Place on empiric steroid and antibiotic - sputum culture, blood cx - Provide supplemental oxygen to keep oxygen saturation above 92% - Consult pulmonary, wean off BiPAP as tolerates - We'll place on sliding scale of insulin, consistent carb diet - We will resume home medications, monitor BP - Provide DVT prophylaxis with Lovenox. Radiological data: Chest x-ray: 1. Right lung base infiltrate, possible pneumonia. Subjective Date of service: 08/16/19 Principal diagnosis: Resp failure and Copd exacerbation/PNA Interval history: 64-year-old female with a past medical history of COPD and home oxygen dependence, CHF, and diabetes presents to the hospital with respiratory distress and alteration in mental status. EMS reports that patient was unresponsive, cyanotic, with room air saturation of 45% in the field. Patient was placed on CPAP for transport and O2 sat increased to 97%. Patient was also treated with albuterol 2.5 mg Atrovent 0.5 mg and brought to the hospital. Blood glucose 96%. She presents lethargic but able to open her eyes to voice and response to questions. No family at the bedside, no further details available. She is placed on BiPAP in the ER, given iv abx, CXR showed Right sided PNA, she is being admitted for further Mx. Hallucinating and delusional. Objective - Constitutional Vitals: Vital Signs - 12hr 08/16/19 08/16/19 08/16/19 04:45 05:00 06:00 Temperature Pulse Rate 94 H 101 H 92 H Pulse Rate [ Anterior Bilateral Throughout] Pulse Rate [ 90 Right Radial] Respiratory 20 20 20 Rate Respiratory Rate [Anterior Bilateral Throughout] Blood Pressure 111/61 120/68 100/56 O2 Sat by Pulse 97 99 98 Oximetry 08/16/19 08/16/19 08/16/19 07:00 08:00 09:00 Temperature 98.1 F Pulse Rate 87 85 86 Pulse Rate [ Anterior Bilateral Throughout] Pulse Rate [ 108 H Right Radial] Respiratory 23 18 16 Rate Respiratory Rate [Anterior Bilateral Throughout] Blood Pressure 112/68 112/68 112/65 O2 Sat by Pulse 96 99 94 Oximetry 08/16/19 08/16/19 08/16/19 09:07 10:00 11:00 Temperature Pulse Rate 105 H 92 H Pulse Rate [ 87 Anterior Bilateral Throughout] Pulse Rate [ Right Radial] Respiratory 15 21 Rate Respiratory 20 Rate [Anterior Bilateral Throughout] Blood Pressure 125/71 125/71 O2 Sat by Pulse 91 92 Oximetry 08/16/19 08/16/19 08/16/19 11:57 12:00 13:00 Temperature Pulse Rate 96 H 94 H 105 H Pulse Rate [ Anterior Bilateral Throughout] Pulse Rate [ Right Radial] Respiratory 20 25 H Rate Respiratory Rate [Anterior Bilateral Throughout] Blood Pressure 100/56 99/47 101/54 O2 Sat by Pulse 90 91 Oximetry 08/16/19 08/16/19 08/16/19 14:00 14:14 15:00 Temperature Pulse Rate 101 H 103 H Pulse Rate [ 101 H Anterior Bilateral Throughout] Pulse Rate [ Right Radial] Respiratory 17 26 H Rate Respiratory 20 Rate [Anterior Bilateral Throughout] Blood Pressure 104/54 107/52 O2 Sat by Pulse 92 90 Oximetry General appearance: Present: mild distress, well-nourished - EENT Eyes: PERRL, EOM intact ENT: hearing intact, clear oral mucosa Ears: bilateral: normal - Neck Neck: supple, normal ROM - Respiratory Respiratory effort: normal Respiratory: bilateral: diminished, rhonchi, wheezing - Breasts Breasts: normal - Cardiovascular Rhythm: regular Heart Sounds: Present: S1 & S2. Absent: gallop, rub Extremities: pulses intact, No edema, normal color, Full ROM - Gastrointestinal General gastrointestinal: Present: soft, non-tender, non-distended, normal bowel sounds Rectal Exam: deferred - Genitourinary Female genitourinary: normal - Integumentary Integumentary: clear, warm, dry - Musculoskeletal Musculoskeletal: 1, strength equal bilaterally - Neurologic Neurologic: moves all extremities - Psychiatric Psychiatric: memory intact, appropriate mood/affect, intact judgment & insight - Labs CBC & Chem 7: 08/15/19 14:16 08/17/19 05:25 Labs: Abnormal lab results 08/15/19 08/15/19 08/15/19 Range/Units 16:35 18:09 22:09 POC ABG pH 7.230 L 7.245 L (7.35-7.45) POC ABG pO2 198 H 63 L (80-105) ABG pO2 52.9 L (80.0-90.0) mm Hg ABG HCO3 40.6 H (20.0-26.0) mmol/L ABG O2 Saturation 89.1 L (95.0-99.0) % ABG Base Excess 12.1 H (-2.0-3.0) mmol/L Oxyhemoglobin 86.8 L (95.0-99.0) % POC Glucose (70-105) 08/15/19 08/15/19 08/16/19 Range/Units 22:22 23:52 02:59 POC ABG pH (7.35-7.45) POC ABG pO2 (80-105) ABG pO2 (80.0-90.0) mm Hg ABG HCO3 (20.0-26.0) mmol/L ABG O2 Saturation (95.0-99.0) % ABG Base Excess (-2.0-3.0) mmol/L Oxyhemoglobin (95.0-99.0) % POC Glucose 157 H 157 H 156 H (70-105) 08/16/19 Range/Units 08:09 POC ABG pH (7.35-7.45) POC ABG pO2 (80-105) ABG pO2 (80.0-90.0) mm Hg ABG HCO3 (20.0-26.0) mmol/L ABG O2 Saturation (95.0-99.0) % ABG Base Excess (-2.0-3.0) mmol/L Oxyhemoglobin (95.0-99.0) % POC Glucose 131 H (70-105)
[2019-08-16] MEDS: INSULIN GLARGINE 100 UNITS/ML SUB-Q SCH (23:53)
[2019-08-17] MEDS: methylPREDNISolone Sod Succinate 40 MG/1 ML INJ IV SCH ×4 (03:34→18:00)
[2019-08-17 06:22] LABS: BUN/Creatinine Ratio 45; Blood Urea Nitrogen 18 mg/dL (7-17); Hemolysis Index 2
--- NOTE | 2019-08-17 07:45 | Progress Note ---
Assessment and Plan Assessment and plan: Acute on chronic hypoxic and hypercapnic respiratory failure Acute metabolic encephalopathy from sepsis and hypercapnia Acute COPD exacerbation Right lower lobe pneumonia Sepsis with right lower lobe pneumonia Insulin-dependent diabetes mellitus type 2 Chronic pain syndrome Diabetic neuropathy Hospitalist Physical - Constitutional Vitals: Temp Pulse Resp BP Pulse Ox 99.4 F 95 H 18 111/63 95 08/17/19 03:12 08/17/19 03:12 08/17/19 03:12 08/17/19 03:12 08/17/19 03:12 General appearance: Present: mild distress, well-nourished Results - Labs CBC & Chem 7: 08/15/19 14:16 08/17/19 05:25 Labs: Laboratory Last Values WBC 16.1 K/mm3 (4.5-11.0) H 08/15/19 14:16 RBC 3.91 M/mm3 (3.65-5.03) 08/15/19 14:16 Hgb 12.3 gm/dl (10.1-14.3) 08/15/19 14:16 Hct 38.1 % (30.3-42.9) 08/15/19 14:16 MCV 97 fl (79-97) 08/15/19 14:16 MCH 31 pg (28-32) 08/15/19 14:16 MCHC 32 % (30-34) 08/15/19 14:16 RDW 13.8 % (13.2-15.2) 08/15/19 14:16 Plt Count 223 K/mm3 (140-440) 08/15/19 14:16 Add Manual Diff Complete 08/15/19 14:16 Total Counted 100 08/15/19 14:16 Seg Neutrophils % Kids Activities Coach 08/15/19 14:16 Seg Neuts % (Manual) 84.0 % (40.0-70.0) H 08/15/19 14:16 Band Neutrophils % 0 % 08/15/19 14:16 Lymphocytes % (Manual) 6.0 % (13.4-35.0) L 08/15/19 14:16 Reactive Lymphs % (Man) 0 % 08/15/19 14:16 Monocytes % (Manual) 10.0 % (0.0-7.3) H 08/15/19 14:16 Eosinophils % (Manual) 0 % (0.0-4.3) 08/15/19 14:16 Basophils % (Manual) 0 % (0.0-1.8) 08/15/19 14:16 Metamyelocytes % 0 % 08/15/19 14:16 Myelocytes % 0 % 08/15/19 14:16 Promyelocytes % 0 % 08/15/19 14:16 Blast Cells % 0 % 08/15/19 14:16 Nucleated RBC % Not Reportable 08/15/19 14:16 Seg Neutrophils # Man 13.5 K/mm3 (1.8-7.7) H 08/15/19 14:16 Band Neutrophils # 0.0 K/mm3 08/15/19 14:16 Lymphocytes # (Manual) 1.0 K/mm3 (1.2-5.4) L 08/15/19 14:16 Abs React Lymphs (Man) 0.0 K/mm3 08/15/19 14:16 Monocytes # (Manual) 1.6 K/mm3 (0.0-0.8) H 08/15/19 14:16 Eosinophils # (Manual) 0.0 K/mm3 (0.0-0.4) 08/15/19 14:16 Basophils # (Manual) 0.0 K/mm3 (0.0-0.1) 08/15/19 14:16 Metamyelocytes # 0.0 K/mm3 08/15/19 14:16 Myelocytes # 0.0 K/mm3 08/15/19 14:16 Promyelocytes # 0.0 K/mm3 08/15/19 14:16 Blast Cells # 0.0 K/mm3 08/15/19 14:16 WBC Morphology Not Reportable 08/15/19 14:16 Hypersegmented Neuts Not Reportable 08/15/19 14:16 Hyposegmented Neuts Not Reportable 08/15/19 14:16 Hypogranular Neuts Not Reportable 08/15/19 14:16 Smudge Cells Not Reportable 08/15/19 14:16 Toxic Granulation Not Reportable 08/15/19 14:16 Toxic Vacuolation Not Reportable 08/15/19 14:16 Dohle Bodies Not Reportable 08/15/19 14:16 Pelger-Huet Anomaly Not Reportable 08/15/19 14:16 Gaye Rods Not Reportable 08/15/19 14:16 Platelet Estimate Not Reportable 08/15/19 14:16 Clumped Platelets Not Reportable 08/15/19 14:16 Plt Clumps, EDTA Not Reportable 08/15/19 14:16 Large Platelets Not Reportable 08/15/19 14:16 Giant Platelets Not Reportable 08/15/19 14:16 Platelet Satelliting Not Reportable 08/15/19 14:16 Plt Morphology Comment Not Reportable 08/15/19 14:16 RBC Morphology Normal 08/15/19 14:16 Dimorphic RBCs Not Reportable 08/15/19 14:16 Polychromasia Not Reportable 08/15/19 14:16 Hypochromasia Not Reportable 08/15/19 14:16 Poikilocytosis Not Reportable 08/15/19 14:16 Anisocytosis Not Reportable 08/15/19 14:16 Microcytosis Not Reportable 08/15/19 14:16 Macrocytosis Not Reportable 08/15/19 14:16 Spherocytes Not Reportable 08/15/19 14:16 Pappenheimer Bodies Not Reportable 08/15/19 14:16 Sickle Cells Not Reportable 08/15/19 14:16 Target Cells Not Reportable 08/15/19 14:16 Tear Drop Cells Not Reportable 08/15/19 14:16 Ovalocytes Not Reportable 08/15/19 14:16 Helmet Cells Not Reportable 08/15/19 14:16 [place] Bodies Not Reportable 08/15/19 14:16 Amado Rings Not Reportable 08/15/19 14:16 Ascencion Cells Not Reportable 08/15/19 14:16 Bite Cells Not Reportable 08/15/19 14:16 Crenated Cell Not Reportable 08/15/19 14:16 Elliptocytes Not Reportable 08/15/19 14:16 Acanthocytes (Spur) Not Reportable 08/15/19 14:16 Rouleaux Not Reportable 08/15/19 14:16 Hemoglobin C Crystals Not Reportable 08/15/19 14:16 Schistocytes Not Reportable 08/15/19 14:16 Malaria parasites Not Reportable 08/15/19 14:16 Qasim Bodies Not Reportable 08/15/19 14:16 Hem Pathologist Commnt No 08/15/19 14:16 PT 13.9 Sec. (12.2-14.9) 08/15/19 14:16 INR 1.08 (0.87-1.13) 08/15/19 14:16 APTT 25.8 Sec. (24.2-36.6) 08/15/19 14:16 POC ABG pH 7.245 (7.35-7.45) L 08/15/19 18:09 ABG pH 7.352 pH Units (7.350-7.450) 08/15/19 22:09 ABG pCO2 74.9 mm Hg 08/15/19 22:09 POC ABG pO2 63 (80-105) L 08/15/19 18:09 ABG pO2 52.9 mm Hg (80.0-90.0) L 08/15/19 22:09 POC ABG HCO3 44.0 (22-26 mml/L) 08/15/19 18:09 ABG HCO3 40.6 mmol/L (20.0-26.0) H 08/15/19 22:09 POC ABG Total CO2 47 (23-27mmol/L) 08/15/19 18:09 POC ABG O2 Sat 85 08/15/19 18:09 ABG O2 Saturation 89.1 % (95.0-99.0) L 08/15/19 22:09 ABG O2 Content 14.8 (0.0-44) 08/15/19 22:09 POC ABG Base Excess 17 ((-2) - (+3)mmol/L) 08/15/19 18:09 ABG Base Excess 12.1 mmol/L (-2.0-3.0) H 08/15/19 22:09 ABG Hemoglobin 12.1 gm/dl (12.0-16.0) 08/15/19 22:09 ABG Carboxyhemoglobin 2.0 % (0.0-5.0) 08/15/19 22:09 ABG Methemoglobin 0.6 % (0.0-1.5) 08/15/19 22:09 Oxyhemoglobin 86.8 % (95.0-99.0) L 08/15/19 22:09 FiO2 30 % 08/15/19 22:09 Sodium 142 mmol/L (137-145) 08/17/19 05:25 Potassium 3.5 mmol/L (3.6-5.0) L 08/17/19 05:25 Chloride 95.1 mmol/L (98-107) L 08/17/19 05:25 Carbon Dioxide 35 mmol/L (22-30) H 08/17/19 05:25 Anion Gap 15 mmol/L 08/17/19 05:25 BUN 18 mg/dL (7-17) H 08/17/19 05:25 Creatinine 0.4 mg/dL (0.7-1.2) L 08/17/19 05:25 Estimated GFR > 60 ml/min 08/17/19 05:25 BUN/Creatinine Ratio 45 % 08/17/19 05:25 Glucose 98 mg/dL (65-100) 08/17/19 05:25 POC Glucose 104 (70-105) 08/16/19 22:09 Calcium 9.0 mg/dL (8.4-10.2) 08/17/19 05:25 Total Bilirubin 0.30 mg/dL (0.1-1.2) 08/15/19 14:16 AST 10 units/L (5-40) 08/15/19 14:16 ALT 6 units/L (7-56) L 08/15/19 14:16 Alkaline Phosphatase 69 units/L (35-129) 08/15/19 14:16 Troponin T < 0.010 ng/mL (0.00-0.029) 08/15/19 14:16 NT-Pro-B Natriuret Pep 1140 pg/mL (0-900) H 08/15/19 14:16 Total Protein 6.5 g/dL (6.3-8.2) 08/15/19 14:16 Albumin 3.6 g/dL (3.9-5) L 08/15/19 14:16 Albumin/Globulin Ratio 1.2 % 08/15/19 14:16 Active Medications - Current Medications Current Medications: Generic Name Dose Route Start Last Admin Trade Name Freq PRN Reason Stop Dose Admin Albuterol 2.5 mg 08/16/19 09:43 08/16/19 14:14 Proventil IH 2.5 mg Q6HRT PRN Administration Shortness Of Breath Arformoterol Tartrate 15 mcg 08/15/19 20:00 08/16/19 22:42 Brovana Nebu IH 15 mcg Q12HRT [facility] Administration Aspirin 81 mg 08/16/19 10:00 08/16/19 11:55 Halfprin Ec PO 81 mg QDAY [facility] Administration Baclofen 10 mg 08/15/19 22:00 08/16/19 23:52 Lioresal PO 10 mg BID [facility] Administration Budesonide 0.5 mg 08/15/19 20:00 08/16/19 22:43 Pulmicort IH 0.5 mg Q12HRT [facility] Administration Digoxin 0.125 mg 08/16/19 10:00 08/16/19 11:57 Lanoxin PO 0.125 mg QDAY [facility] Administration Enoxaparin Sodium 40 mg 08/16/19 10:00 08/16/19 11:50 Enoxaparin SUB-Q 40 mg QDAY@1000 [facility] Administration Hydrophilic Ointment 1 applic 08/16/19 05:12 Vaseline Lip Therapy TP DIRECT PRN Dry Lips Insulin Glargine 12 units 08/15/19 22:00 08/16/19 23:53 Lantus SUB-Q 12 units QHS [facility] Administration Insulin Human Regular 0 units 08/15/19 22:00 08/16/19 23:39 Humulin R SUB-Q Not Given ACHS [facility] Protocol Methylprednisolone Sodium Succinate 60 mg 08/16/19 12:00 08/17/19 03:34 Solu-Medrol IV Not Given Q6HR [facility] Oxycodone/Acetaminophen 1 tab 08/15/19 18:32 Percocet 5/325 PO Q6HR PRN PAIN Potassium Chloride 30 meq 08/17/19 07:35 K-Dur PO 08/17/19 07:36 ONCE ONE Theophylline 300 mg 08/15/19 22:00 08/16/19 23:52 Theodur PO 300 mg Q12HR [facility] Administration Nutrition/Malnutrition Assess - Dietary Evaluation Nutrition/Malnutrition Findings: Nutrition Notes Start: 08/16/19 12:28 Freq: Status: Active Protocol: Document 08/16/19 12:28 CC (Rec: 08/16/19 12:46 CC [id number]) Co-Sign 08/16/19 12:28 LP Nutrition Notes Need for Assessment generated from: room service clerk,MST Initial or Follow up Assessment Current Diagnosis COPD,Diabetes,Heart Failure Other Pertinent Diagnosis AMS, 2+ edema Current Diet consistent CHO Labs/Tests 08/15 Na 146 BUN 23 Creat 0.4 Pertinent Medications Reviewed Height 4 ft 11 in Weight 61 kg [place] Body Weight (kg) 43.18 BMI 27.1 Intake Prior to Admission Poor Weight Status Appropriate Subjective/Other Information Screen for MST and skin risk assesment. Pt reported her appetite was poor [employer] but did not know for how long it has been this way. Pt reported she has had unintentional wt loss but did not know when she started losing wt or what her UBW is. Pt reported she has been eating all of her meals while in the hospital. Burn Absent Trauma Absent GI Symptoms None Food Allergy No Current % PO Good (75-100%) Minimum of two criteria Yes Fluid Accumulation Mild (non-severe) Reduced Animal Doctor Strength Measurably Reduced (severe) #1 Nutrition Diagnosis Malnutrition Etiology Chronic illlness, COPD As Evidenced by Signs and Symptoms bilateral bottom liquor attendant strength weakness, 2+ pitting edema Is patient on ventilator? No Is Patient Ambulatory and/or Out of Bed No REE-([facility]-confined to bed) 1272.360 Calculation Used for Recommendations [facility] Additional Notes PRO: 73-92g/day (1.2-1.5g/kg) Fluid: 1ml/kcal Nutrition Intervention Change Diet Order: cardiac/consistent CHO Goal #1 Meet at least 80% of energy and protein needs via PO Anticipated Discharge Needs: cardiac/consistent CHO Follow-Up By: 08/21/19 Additional Comments F/U for stable intakes
[2019-08-17] MEDS: INSULIN REGULAR, HUMAN 100 UNITS/1 ML SUB-Q SCH ×3 (08:10→17:30)
[2019-08-17] MEDS ORDERED: POTASSIUM CHLORIDE ER 10 MEQ TAB PO ONE (09:00)
[2019-08-17 09:13] LABS: Basophils % (Auto) 0.3 % (0.0-1.8); Hematocrit 39.8 % (30.3-42.9); Lymphocytes # (Auto) 1.1 K/mm3 (1.2-5.4); Lymphocytes % (Auto) 7.6 % (13.4-35.0); Mean Corpuscular HGB Conc 33 % (30-34); Mean Corpuscular Volume 96 fl (79-97); Monocytes # (Auto) 1.3 K/mm3 (0.0-0.8); Monocytes % (Auto) 9.3 % (0.0-7.3); Platelet Count 254 K/mm3 (140-440); Red Blood Count 4.16 M/mm3 (3.65-5.03); Red Cell Distribution Width 14.2 % (13.2-15.2)
[2019-08-17] MEDS: BUDESONIDE 0.5 MG/2 ML NEBU IH SCH (10:03)
[2019-08-17] MEDS: ARFORMOTEROL 15 MCG/2 ML NEBU IH SCH (10:03)
[2019-08-17] MEDS: DIGOXIN 0.125 MG TAB PO SCH (10:26)
[2019-08-17] MEDS: ENOXAPARIN 40 MG/0.4 ML INJ SUB-Q SCH (10:26)
[2019-08-17] MEDS: ASPIRIN EC 81 MG TAB PO SCH (10:26)
[2019-08-17] MEDS: BACLOFEN 10 MG TAB PO SCH (10:26)
[2019-08-17] MEDS: THEOPHYLLINE ANHYDROUS ER 300 MG TAB PO SCH (11:45)
--- NOTE | 2019-08-17 11:55 | Progress Note ---
Assessment and Plan 64 y/o female with acute on chronic respiratory failure secondary to acute exacerbation of COPD 1. If patient refusing therapy, no objection to discharge to home. She follows with Ricco Perry in [place]. 2. If willing, please send out on Prednisone 60 daily for 4 days, 40 daily for 4 days, 20 daily for 4 days, 10 daily for days. 3. Resume home COPD regimen 4. Again, smoking cessation encouraged. Subjective Date of service: 08/17/19 Principal diagnosis: Resp failure and Copd exacerbation/PNA Interval history: Successful transfer out of unit. Only had 2 doses of IV steroids. 3rd missed secondary to no IV and 4th per documentation patient refused. Patient also refused bipap therapy last night per RT note. Objective Vital Signs - 12hr 08/17/19 08/17/19 08/17/19 03:00 03:12 07:37 Temperature 99.4 F 98.5 F Pulse Rate 95 H 77 Pulse Rate [ Anterior Bilateral Throughout] Respiratory 18 18 20 Rate Respiratory Rate [Anterior Bilateral Throughout] Blood Pressure 111/63 111/55 O2 Sat by Pulse 95 95 Oximetry 08/17/19 08/17/19 08/17/19 09:13 10:02 10:03 Temperature Pulse Rate Pulse Rate [ 89 Anterior Bilateral Throughout] Respiratory 20 Rate Respiratory 20 Rate [Anterior Bilateral Throughout] Blood Pressure O2 Sat by Pulse 93 Oximetry 08/17/19 10:26 Temperature Pulse Rate 77 Pulse Rate [ Anterior Bilateral Throughout] Respiratory Rate Respiratory Rate [Anterior Bilateral Throughout] Blood Pressure 111/55 O2 Sat by Pulse Oximetry Constitutional: no acute distress, alert, other (appears older than stated age) Eyes: non-icteric ENT: oropharynx moist Neck: supple Effort: normal Ascultation: Bilateral: diminished breath sounds Percussion: Bilateral: not dull Tactile fremitus: Bilateral: normal Cardiovascular: regular rate and rhythm Gastrointestinal: normoactive bowel sounds, soft Integumentary: normal Extremities: no cyanosis CBC and BMP: 08/17/19 08:48 08/17/19 05:25 ABG, PT/INR, D-dimer: ABG POC ABG pH 7.245 (7.35-7.45) L 08/15/19 18:09 ABG pH 7.352 pH Units (7.350-7.450) 08/15/19 22:09 ABG pCO2 74.9 mm Hg 08/15/19 22:09 POC ABG pO2 63 (80-105) L 08/15/19 18:09 ABG pO2 52.9 mm Hg (80.0-90.0) L 08/15/19 22:09 POC ABG HCO3 44.0 (22-26 mml/L) 08/15/19 18:09 POC ABG Total CO2 47 (23-27mmol/L) 08/15/19 18:09 POC ABG O2 Sat 85 08/15/19 18:09 ABG O2 Saturation 89.1 % (95.0-99.0) L 08/15/19 22:09 PT/INR, D-dimer PT 13.9 Sec. (12.2-14.9) 08/15/19 14:16 INR 1.08 (0.87-1.13) 08/15/19 14:16 Abnormal lab findings: Abnormal Labs 08/15/19 08/15/19 08/15/19 14:16 14:16 14:16 WBC 16.1 H Lymph % (Auto) [place] % (Auto) Lymph # [place] # Seg Neutrophils % Seg Neuts % (Manual) 84.0 H Lymphocytes % (Manual) 6.0 L Monocytes % (Manual) 10.0 H Seg Neutrophils # Seg Neutrophils # Man 13.5 H Lymphocytes # (Manual) 1.0 L Monocytes # (Manual) 1.6 H POC ABG pH POC ABG pO2 ABG pO2 ABG HCO3 ABG O2 Saturation ABG Base Excess Oxyhemoglobin Sodium 146 H Potassium Chloride 93.8 L Carbon Dioxide 32 H BUN 23 H Creatinine 0.4 L POC Glucose ALT 6 L NT-Pro-B Natriuret Pep 1140 H Albumin 3.6 L 08/15/19 08/15/19 08/15/19 14:53 16:35 18:09 WBC Lymph % (Auto) [place] % (Auto) Lymph # [place] # Seg Neutrophils % Seg Neuts % (Manual) Lymphocytes % (Manual) Monocytes % (Manual) Seg Neutrophils # Seg Neutrophils # Man Lymphocytes # (Manual) Monocytes # (Manual) POC ABG pH 7.259 L 7.230 L 7.245 L POC ABG pO2 198 H 63 L ABG pO2 ABG HCO3 ABG O2 Saturation ABG Base Excess Oxyhemoglobin Sodium Potassium Chloride Carbon Dioxide BUN Creatinine POC Glucose ALT NT-Pro-B Natriuret Pep Albumin 08/15/19 08/15/19 08/15/19 22:09 22:22 23:52 WBC Lymph % (Auto) [place] % (Auto) Lymph # [place] # Seg Neutrophils % Seg Neuts % (Manual) Lymphocytes % (Manual) Monocytes % (Manual) Seg Neutrophils # Seg Neutrophils # Man Lymphocytes # (Manual) Monocytes # (Manual) POC ABG pH POC ABG pO2 ABG pO2 52.9 L ABG HCO3 40.6 H ABG O2 Saturation 89.1 L ABG Base Excess 12.1 H Oxyhemoglobin 86.8 L Sodium Potassium Chloride Carbon Dioxide BUN Creatinine POC Glucose 157 H 157 H ALT NT-Pro-B Natriuret Pep Albumin 08/16/19 08/16/19 08/16/19 02:59 08:09 11:29 WBC Lymph % (Auto) [place] % (Auto) Lymph # [place] # Seg Neutrophils % Seg Neuts % (Manual) Lymphocytes % (Manual) Monocytes % (Manual) Seg Neutrophils # Seg Neutrophils # Man Lymphocytes # (Manual) Monocytes # (Manual) POC ABG pH POC ABG pO2 ABG pO2 ABG HCO3 ABG O2 Saturation ABG Base Excess Oxyhemoglobin Sodium Potassium Chloride Carbon Dioxide BUN Creatinine POC Glucose 156 H 131 H 162 H ALT NT-Pro-B Natriuret Pep Albumin 08/16/19 08/17/19 08/17/19 16:49 05:25 08:48 WBC 14.5 H Lymph % (Auto) 7.6 L [place] % (Auto) 9.3 H Lymph # 1.1 L [place] # 1.3 H Seg Neutrophils % 82.8 H Seg Neuts % (Manual) Lymphocytes % (Manual) Monocytes % (Manual) Seg Neutrophils # 12.0 H Seg Neutrophils # Man Lymphocytes # (Manual) Monocytes # (Manual) POC ABG pH POC ABG pO2 ABG pO2 ABG HCO3 ABG O2 Saturation ABG Base Excess Oxyhemoglobin Sodium Potassium 3.5 L Chloride 95.1 L Carbon Dioxide 35 H BUN 18 H Creatinine 0.4 L POC Glucose 183 H ALT NT-Pro-B Natriuret Pep Albumin
--- NOTE | 2019-08-17 15:19 | Discharge Summary ---
Providers - Providers Date of Admission: 08/15/19 16:47 Date of discharge: 08/27/19 Attending physician: OMEGA FRANK 08/15/19 16:32 Consult to Physician [CONS] Urgent Comment: Consulting Provider: AYLIN PACKER Physician Instructions: Reason For Exam: copd, pneumonia Primary care physician: STAFFING CONSULTANT Hospitalization Reason for admission: Acute hypoxic resp failure/AMS Condition: Stable Pertinent studies: CXR:Right LL infiltrate,possible PNA, Hospital course: 64-year-old female with a past medical history of COPD and home oxygen dependence, CHF, and diabetes presents to the hospital with respiratory distress and alteration in mental status. EMS reports that patient was unresponsive, cyanotic, with room air saturation of 45% in the field. Patient was placed on CPAP for transport and O2 sat increased to 97%. Patient was also treated with albuterol 2.5 mg Atrovent 0.5 mg and brought to the hospital. Blood glucose 96%. She presents lethargic but able to open her eyes to voice and response to questions. No family at the bedside, no further details available. She is placed on BiPAP in the ER, given iv abx, CXR showed Right sided PNA, Patient's symptoms significantly improved. Today patient feels better,no new complaits ,vital signs reviewed. Stable at discharge Discharge Diagnosis: --Acute on chronic hypoxic and hypercapnic respiratory failure --Acute metabolic encephalopathy from sepsis and hypercapnia --Acute COPD exacerbation --Right lower lobe pneumonia --Sepsis with right lower lobe pneumonia --Insulin-dependent diabetes mellitus type 2 --Chronic pain syndrome --Diabetic neuropathy Disposition: [id number] HOME [facility] Time spent for discharge: 32 min Core Measure Documentation - Palliative Care Palliative Care/ Comfort Measures: Not Applicable - Core Measures Any of the following diagnoses?: none Exam - Constitutional Vitals: Temp Pulse Resp BP Pulse Ox 98.5 F 77 20 111/55 93 08/17/19 07:37 08/17/19 10:26 08/17/19 10:03 08/17/19 10:26 08/17/19 10:02 General appearance: Present: no acute distress, well-nourished - EENT Eyes: Present: PERRL, EOM intact - Neck Neck: Present: supple, normal ROM - Respiratory Respiratory effort: normal Respiratory: bilateral: diminished, negative: rales, rhonchi, wheezing - Cardiovascular Rhythm: regular Heart Sounds: Present: S1 & S2 - Extremities Extremities: no ischemia, No edema - Abdominal General gastrointestinal: Present: soft, non-tender, non-distended, normal bowel sounds - Integumentary Integumentary: Present: clear, warm - Musculoskeletal Musculoskeletal: strength equal bilaterally - Psychiatric Psychiatric: appropriate mood/affect, cooperative - Neurologic Neurologic: CNII-XII intact, moves all extremities Plan Activity: advance as tolerated, fall precautions Diet: diabetic Additional Instructions: If you have shortness of breath contact M.D. or go to emergency room Follow up with: PRIMARY CARE,MD [Primary Care Provider] - 7 Days Prescriptions: predniSONE [Deltasone] 6 tab PO DAILY #52 tablet levoFLOXacin [Levaquin] 750 mg PO QDAY #5 tablet
[2019-08-17 19:06] VITALS: BP 126/72
== END 2019-08-17 20:30 | disposition home health service (06) | DRG 871 ==
LOC: ED 13:42 → CC1 16:47 → 2B-ACE 08-16 15:45
PROVIDERS: ADMIT Internal Medicine; ATTEND Internal Medicine
PROC: 4A033R1 Measurement of Arterial Saturation, Peripheral, Percutaneous Approach (ICD-10-PCS; 2019-08-15)
PROC: 5A09357 Assistance with Respiratory Ventilation, Less than 24 Consecutive Hours, Continuous Positive Airway Pressure (ICD-10-PCS; 2019-08-15)
PROC: 3E0234Z Introduction of Serum, Toxoid and Vaccine into Muscle, Percutaneous Approach (ICD-10-PCS; principal; 2019-08-16)
PROC: 5A09357 Assistance with Respiratory Ventilation, Less than 24 Consecutive Hours, Continuous Positive Airway Pressure (ICD-10-PCS; 2019-08-16)
DX: A41.9 Sepsis, unspecified organism (principal); J18.9 Pneumonia, unspecified organism; J96.21 Acute and chronic respiratory failure with hypoxia; J96.22 Acute and chronic respiratory failure with hypercapnia; G93.41 Metabolic encephalopathy; J44.1 Chronic obstructive pulmonary disease with (acute) exacerbation; G89.4 Chronic pain syndrome; I50.9 Heart failure, unspecified; F17.200 Nicotine dependence, unspecified, uncomplicated; E11.42 Type 2 diabetes mellitus with diabetic polyneuropathy; Z79.4 Long term (current) use of insulin; Z99.81 Dependence on supplemental oxygen; Z88.0 Allergy status to penicillin; Z79.82 Long term (current) use of aspirin; Z79.899 Other long term (current) drug therapy; Z71.6 Tobacco abuse counseling; Z82.49 Family history of ischemic heart disease and other diseases of the circulatory system; Z90.710 Acquired absence of both cervix and uterus; Z23 Encounter for immunization
CPT/HCPCS: 36415; 36600; 71045; 80048; 80053; 82803; 82962; 83880; 84484; 85007; 85025; 85610; 85730; 87040; 90471; 90686; 90732; 93005; 93010; 94640; 94644; 94760; G0378; G0008; G0009; J1650; J1815; J1956; J2920; J2930